=== PATIENT | male | born 1960 | race Caucasian/White ===

== ENCOUNTER 2020-03-08 10:58 | Outpatient (CLI) | payer OTHER, SELFPAY ==
--- NOTE | ~2020-03-08 | XR_ITS ---
EXAMINATION: XR shoulder LT min 2V, XR humerus LT DATE: 03/08/2020 11:42 INDICATION: Left arm and shoulder pain post fall TECHNIQUE: 1. AP internally and externally rotated, AP oblique externally rotated and axillary views of the left shoulder were obtained. 2. AP and lateral views of the left humerus were obtained on overlapping proximal and distal images. COMPARISON: None FINDINGS: Normal alignment. No fracture. Mild polyarticular osteoarthritis at the left glenohumeral, chromic c lavicular and elbow joints. Soft tissues are unremarkable. Visualized portions of the left lung are c lear. IMPRESSION: Mild polyarticular osteoarthritis at the left elbow and shoulder. No acute osseous abnormality. Reviewed, dictated and finalized at location A. IMPRESSION: Mild polyarticular osteoarthritis at the left elbow and shoulder. No acute osse ous abnormality.
== END 2020-03-08 10:59 | disposition home or self-care (01) ==
PROVIDERS: PCP Family Medicine; Visit Provider Nurse Practitioner
DX: M19.012 Primary osteoarthritis, left shoulder (principal); M19.022 Primary osteoarthritis, left elbow
CPT/HCPCS: 73030; 73060

== ENCOUNTER 2020-09-28 09:16 | Outpatient (CLI) | payer MEDICARE, MEDICAID, SELFPAY ==
--- NOTE | 2020-09-28 | EST_ITS ---
Patient Info Name: Hever Washington Age: 60 years : 1960 Gender: Male Ht: 76 in Wt: 370 lbs BSA: 3.07 m2 Exam Date: 09/28/2020 9:47 AM Exam Location: [facility] Stress Patient Status: Outpatient Admit Date: 09/28/2020 Staff Ordering Physician: Paul, Sirena Dorsey NP Attending Provider: Paul, Sirena Dorsey NP Exercise Technologist: Adriana Lei RDCS Exercise Physician: Abdelrahman Johnston MD Exam Type: CA stress test treadmill Study Info Indications R07.9 - Chest pain, unspecified A treadmill exercise stress test was performed. Summary 1. Non-diagnostic ECG interpretation due to submaximal heart rate response to exercise achieving 84% APMHR. 2. No electrocardiographic evidence of myocardial ischemia at workload achieved, 4.7 METS at peak exercise. 3. Poor exercise tolerance for age. 4. Normal BP and submaximal HR response to exercise. 5. Occasional PVCs noted during recovery. 6. No stress induced chest pain. 7. Consider alternative modality such as Lexiscan nuclear perfusion study if clinically indicated to improve diagnostic sensitivity and specificity. Recommendations * Consider alternative modality such as Lexiscan nuclear perfusion study if clinically indicated to improve diagnostic sensitivity and specificity. Protocol: Eric Stress ECG Details Stage: REST Duration (min): 7 min : 29 sec Speed (mph): 0.0 Grade (%): 0 HR (bpm): 58 SBP (mmHg): 125 DBP (mmHg): 79 METS: --- Stage: REST Duration (min): 9 min : 26 sec Speed (mph): 0.0 Grade (%): 0 HR (bpm): 86 SBP (mmHg): 125 DBP (mmHg): 79 METS: --- Stage: STAGE 1 Duration (min): 1 min : 0 sec Speed (mph): 1.7 Grade (%): 10 HR (bpm): 108 SBP (mmHg): 125 DBP (mmHg): 79 METS: --- Stage: STAGE 1 Duration (min): 2 min : 0 sec Speed (mph): 1.7 Grade (%): 10 HR (bpm): 130 SBP (mmHg): 125 DBP (mmHg): 79 METS: --- Stage: STAGE 1 Duration (min): 2 min : 51 sec Speed (mph): 1.7 Grade (%): 10 HR (bpm): 135 SBP (mmHg): 169 DBP (mmHg): 106 METS: --- Stage: RECOVERY Duration (min): 0 min : 8 sec Speed (mph): 1.5 Grade (%): 0 HR (bpm): 136 SBP (mmHg): 169 DBP (mmHg): 106 METS: --- Stage: RECOVERY Duration (min): 1 min : 8 sec Speed (mph): 0.0 Grade (%): 0 HR (bpm): 85 SBP (mmHg): 192 DBP (mmHg): 83 METS: --- Stage: RECOVERY Duration (min): 2 min : 8 sec Speed (mph): 0.0 Grade (%): 0 HR (bpm): 59 SBP (mmHg): 192 DBP (mmHg): 83 METS: --- Stage: RECOVERY Duration (min): 3 min : 8 sec Speed (mph): 0.0 Grade (%): 0 HR (bpm): 67 SBP (mmHg): 192 DBP (mmHg): 83 METS: --- Stage: RECOVERY Duration (min): 3 min : 24 sec Speed (mph): 0.0 Grade (%): 0 HR (bpm): 69 SBP (mmHg): 164 DBP (mmHg): 85 METS: --- Rest HR: 86 bpm Peak HR: 136 bpm Rest Sys BP: 125 mmHg Peak Sys BP: 192 mmHg Max Pred HR: 161 bpm % Max Pred HR: 84 %
== END 2020-09-28 09:17 | disposition home or self-care (01) ==
PROVIDERS: PCP Family Medicine; Visit Provider Nurse Practitioner
DX: R07.9 Chest pain, unspecified (principal)
CPT/HCPCS: 93017

== ENCOUNTER 2020-10-20 08:05 | Outpatient (CLI) | payer MEDICARE, MEDICAID, SELFPAY ==
--- NOTE | 2020-10-20 | EST_ITS ---
Patient Info Name: Hever Washington Age: 60 years : 1960 Gender: Male Ht: 76 in Wt: 372 lbs BSA: 3.08 m2 Exam Date: 10/20/2020 9:28 AM Exam Location: [facility] Stress Patient Status: Outpatient Admit Date: 10/20/2020 Staff Ordering Physician: Paul, Sirena Dorsey NP Attending Provider: Paul, Sirena Dorsey NP Exercise Technologist: Anuel Ferro RDCS, RT Exercise Physician: Abdelrahman Johnston MD Exam Type: CA stress david w NM Study Info A regadenoson stress test was performed. Summary 1. Normal EKG response to Lexiscan without changes meeting strict criteria for reversible myocardial ischemia. 2. No arrhythmias were observed during the examination. 3. Please correlate with nuclear medicine images, reported separately. 4. No chest discomfort with stress test. Protocol: Lexiscan Stress ECG Details Stage: REST Duration (min): 2 min : 39 sec HR (bpm): 67 SBP (mmHg): 131 DBP (mmHg): 78 Stage: REST Duration (min): 11 min : 44 sec HR (bpm): 67 SBP (mmHg): 131 DBP (mmHg): 78 Stage: STAGE 1 Duration (min): 1 min : 0 sec HR (bpm): 88 SBP (mmHg): 142 DBP (mmHg): 76 Stage: RECOVERY Duration (min): 1 min : 0 sec HR (bpm): 90 SBP (mmHg): 142 DBP (mmHg): 76 Stage: RECOVERY Duration (min): 2 min : 0 sec HR (bpm): 91 SBP (mmHg): 142 DBP (mmHg): 76 Stage: RECOVERY Duration (min): 3 min : 0 sec HR (bpm): 83 SBP (mmHg): 150 DBP (mmHg): 82 Stage: RECOVERY Duration (min): 4 min : 0 sec HR (bpm): 83 SBP (mmHg): 150 DBP (mmHg): 82 Stage: RECOVERY Duration (min): 5 min : 0 sec HR (bpm): 77 SBP (mmHg): 148 DBP (mmHg): 87 Stage: RECOVERY Duration (min): 5 min : 28 sec HR (bpm): 78 SBP (mmHg): 148 DBP (mmHg): 87 Rest HR: 67 bpm Peak HR: 98 bpm Rest Sys BP: 131 mmHg Peak Sys BP: 150 mmHg Max Pred HR: 161 bpm % Max Pred HR: 61 % Target HR: 137 bpm Max RPP: 14,700 bpm*mmHg BP Response: Normal blood pressure response Termination Reason: Completed protocol Cardiac Symptoms: None Total Time: 1 min : 0 sec Rest Hernandes BP: 78 mmHg Peak Hernandes BP: 82 mmHg Total Dose: 0.4 mg Resting ECG Normal sinus rhythm. First-degree AV block, low-voltage QRS. Stress ECG Normal EKG response to Lexiscan without changes meeting strict criteria for reversible myocardial ischemia. Arrhythmias No arrhythmias were observed during the examination. Report Signatures
--- NOTE | ~2020-10-20 | NM_ITS ---
EXAMINATION: NM david stress w perfusion DATE: 10/20/2020 11:45 INDICATION: Chest pain. TECHNIQUE: Rest images were obtained following intravenous administration of 9.6 mCi Tc99m tetrofosmi n (Myoview). The patient was infused intravenously with Lexiscan (regadenoson). Then, 28.6 mCi Tc99m tetrofosmin (Myoview) was administered intravenously, and stress images were obtained. Data was recon structed into short axis and horizontal and vertical long axis SPECT images. Gated SPECT images were also obtained. COMPARISON: None. FINDINGS: There is a moderate-sized, mild, partially reversible perfusion defect involving the left v entricular apex, apical lateral segment, and apical to mid inferior segments, consistent with mixed i nfarct and ischemia. There is no segmental motion abnormality. Left ventricular ejection fraction m easures 59%. IMPRESSION: 1. 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 2. Normal left ventricular ejection fraction measuring 59%. Reviewed, dictated and finalized at location A. PEELING MACHINE OPERATOR HELPER IMPRESSION: 1. Moderate-sized area of mild mixed infarct and ischemia involving left ventri cular apex, apical lateral segment, and apical to mid inferior segments. 2. Normal left ventricular ejection fraction measuring 59%.
== END 2020-10-20 08:06 | disposition home or self-care (01) ==
LOC: ANHCARD 08:09
PROVIDERS: PCP Family Medicine; Visit Provider Nurse Practitioner
DX: R07.9 Chest pain, unspecified (principal)
CPT/HCPCS: 78452; 93017; A9502; J2785

== ENCOUNTER 2020-12-29 13:42 | Emergency (ER) | payer MEDICARE, SELFPAY ==
--- NOTE | ~2020-12-29 | XR_ITS ---
EXAMINATION: XR wrist RT min 3V EXAM DATE: 12/29/2020 14:45 INDICATION: Initial encounter following injury, with pain of the right wrist. TECHNIQUE: Right wrist frontal, frontal with ulnar deviation, oblique and lateral projections obtain ed and reviewed. Comparison is made to prior examination from 11/18/2015. FINDINGS: Right wrist scapholunate joint space is maintained. There are no acute fractures or disloca tions identified. There is no subcutaneous gas. The soft tissue is unremarkable. There are no rad iopaque foreign bodies. IMPRESSION: 1. XR wrist RT min 3V exam without acute osseous findings. Reviewed, dictated and finalized at location A.
--- NOTE | ~2020-12-29 | XR_ITS ---
EXAMINATION: XR shoulder RT min 2V EXAM DATE: 12/29/2020 14:45 INDICATION: Initial encounter following injury, with pain of the right shoulder. TECHNIQUE: The following right shoulder projections obtained: frontal projection with internal rotati on, frontal projection with external rotation, Grashey, and scapular Y view (4+ views). Comparison is made to prior examination from 06/21/2015. FINDINGS: No evidence of right shoulder rotator cuff calcific tendinosis. There is mild glenohumer al, mild to moderate acromioclavicular joint primary osteoarthritis. There are no acute fractures or dislocations identified. There is no subcutaneous gas. The soft tissue is unremarkable. There are no radiopaque foreign bodies. IMPRESSION: 1. XR shoulder RT min 2V exam without acute osseous findings. Reviewed, dictated and finalized at location A.
[2020-12-29 14:04] VITALS: BP 146/89; PULSE 88; RESP 16; TEMP 36.6; O2SAT 98
[2020-12-29] MEDS: TETANUS,DIPHTHERIA,AC PERTUSSIS ADULT (0.5 ML) BOOSTRIX IM (14:06)
--- NOTE | 2020-12-29 15:05 | ED.UPPEXIN ---
HPI - Extremity Injury (Upper) General Chief Complaint: Extremity Injury, Lower Stated Complaint: FALL/L LEG INJURY Source: patient Limitations: no limitations History of Present Illness HPI narrative: The obese patient, on several meds and disability, presents with extremity pains. The patient states he slipped and fell prior to arrival on his deck, landing up on his upper right side in the yard. He complains of mild pain left scott, right wrist and right shoulder; is mild worse with motion, better with rest or elevation. No significant deformity, bleeding, edema Related Data Home Medications Medication Instructions Recorded Confirmed aspirin 81 mg tablet,delayed 81 mg PO DAILY 11/03/20 12/07/20 release cyclobenzaprine 10 mg tablet 10 mg PO TID 11/03/20 12/07/20 docusate sodium 100 mg capsule 100 mg PO DAILY 11/03/20 12/07/20 gabapentin 600 mg tablet 600 mg PO TID 11/03/20 12/07/20 hydrocodone 5 mg-acetaminophen 325 1 tablet PO Q6H PRN 11/03/20 12/07/20 mg tablet lisinopril 20 mg tablet 20 mg PO DAILY 11/03/20 12/07/20 melatonin 10 mg capsule mg PO .pm PRN cap 11/03/20 12/07/20 meloxicam 7.5 mg tablet 7.5 mg PO DAILY 11/03/20 12/07/20 multivitamin 1 tablet PO DAILY 11/03/20 12/07/20 sertraline 50 mg tablet 50 mg PO DAILY 11/03/20 12/07/20 sildenafil 25 mg tablet 25 mg PO DAILY PRN 11/03/20 12/07/20 venlafaxine 75 mg capsule,extended 75 mg PO DAILY 11/03/20 12/07/20 release 24 hr ascorbate calcium (vitamin C) 500 500 mg PO DAILY 11/09/20 12/07/20 mg tablet cholecalciferol (vitamin D3) 10 10 mcg PO DAILY 11/09/20 12/07/20 mcg (400 unit) capsule cyanocobalamin (vitamin B-12) 50 50 mcg PO DAILY 11/09/20 12/07/20 mcg tablet ropinirole 1 mg tablet 1 mg PO DAILY tablet 11/09/20 12/07/20 vitamin E 200 unit capsule 200 unit PO DAILY 02/23/21 03/23/21 Allergies Allergy/AdvReac Type Severity Reaction Status Date / Time No Known Allergies Allergy Verified 12/07/20 13:09 Review of Systems Review of Systems: Narrative: General/Constitutional: No weight loss,fever Eyes: N0: Redness,discharge Ears/Nose/Throat: No: Epistaxis,ear discharge Respiratory: Denies: Hemoptysis Gastrointestinal: No Vomiting, Bleeding-rectal Skin: No Lumps, eruption Neurologic: No Focal Weakness,Sz Hematologic: Denies: Petechiae/Purpura Psychiatric: No: Suicida ideationl All Other Systems: Reviewed and Negative [facility] Past Medical History Medical History (Updated 12/29/20 @ 15:10 by Mustapha Cleary MD) Anxiety Hypertension Insomnia Obesity ED (obstructive sleep apnea) Osteoarthritis Radiculopathy of lumbosacral region Spinal stenosis Spinal stenosis of lumbosacral region Testicular hypofunction Umbilical hernia with gangrene Social History Social History Smoking status: Former smoker Comments At time of signature, agree with nursing past medical, surgical, social and family history. There is no relevant family history pertinent to the presenting complaint Exam Narrative: Exam Narrative: General Appearance: Aged appearing, Well nourished/obese EYE: PERRLA, EOMI, Conjunctiva clear Ears: External ear normal, Auditory canal normal Nose: Normal nose, Nares clear Mouth/Throat: Normal appearing, Normal lips Neck: Supple, SROm/ FAROM , noontender Respiratory: Airway patent, No respiratory distress MS-RUE: Normal strength (mostly intact, limited flexion/extension, IR/ER by pain), Tenderness (deltoid and distal radial styloid, with mild decreased ROM), no swelling , Skin: Small puncture wound left scott; otherwise warm, Dry, Neurological: A&O x3, Speech clear, CN II-XII intact Psychiatric: Normal mood, Normal affect Course Course Emergency Course: Films visualized, interpreted by radiologist, agree, normal see report Vital Signs Vital signs: Vital Signs Temperature 97.8 F 12/29/20 14:04 Pulse Rate 88 12/29/20 14:04 Respiratory Rate 16 12/29/20 14:04 Blood Pressure 146/89 H 12/29/20 14:04
== END 2020-12-29 15:18 | disposition home or self-care (01) ==
PROVIDERS: Emergency Provider Emergency Medicine; PCP Family Medicine
DX: S69.81XA Other specified injuries of right wrist, hand and finger(s), initial encounter (principal); S40.011A Contusion of right shoulder, initial encounter; W01.0XXA Fall on same level from slipping, tripping and stumbling without subsequent striking against object, initial encounter; Z23 Encounter for immunization; I10 Essential (primary) hypertension; G47.33 Obstructive sleep apnea (adult) (pediatric); M19.90 Unspecified osteoarthritis, unspecified site; M48.07 Spinal stenosis, lumbosacral region; F41.9 Anxiety disorder, unspecified; Z87.891 Personal history of nicotine dependence
CPT/HCPCS: 73030; 73110; 90471; 90715; 99214; G0463

== ENCOUNTER 2021-01-28 12:47 | Outpatient (CLI) | payer MEDICARE, SELFPAY ==
[2021-01-28 13:44] LABS: Potassium 4.8 mmol/L (3.4-5.0)
[2021-01-28 13:46] LABS: Alanine Aminotransferase 16 U/L (4-50); Albumin Level 4.2 g/dL (3.5-5.1); Alkaline Phosphatase 62 U/L (38-126); Anion Gap 3 mmol/L (8-16); Aspartate Amino Transferase 28 U/L (17-59); Bilirubin,Total 0.5 mg/dL (0.2-1.3); Blood Urea Nitrogen 19 mg/dL (9-20); Calcium 9.6 mg/dL (8.4-10.2); Carbon Dioxide 33 mmol/L (22-30); Chloride 102 mmol/L (98-107); Cholesterol 155 mg/dL (0-200); Estimated Glomerular Filt Rate > 60; Glucose 94 mg/dL (75-110); HDL Direct 31 mg/dL; Sodium 138 mmol/L (137-145); Triglycerides 88 mg/dL (<150)
[2021-01-28 13:56] LABS: LDL Cholesterol Direct 103 mg/dL
== END 2021-01-28 12:48 | disposition home or self-care (01) ==
PROVIDERS: PCP Family Medicine; Visit Provider Internal Medicine Cardiovascular Disease
DX: I25.10 Atherosclerotic heart disease of native coronary artery without angina pectoris (principal)
CPT/HCPCS: 36415; 80053; 80061

== ENCOUNTER 2021-08-01 11:14 | Outpatient (CLI) | payer MEDICARE, SELFPAY ==
[2021-08-01 11:51] LABS: Basophils Percent Auto 0.1 % (0.2-1.2); Eosinophils Absolute Auto 0.2 K/mm3 (0-0.3); Hematocrit 43.8 % (42.0-52.0); Hemoglobin 14.8 g/dL (14.0-18.0); Immature Granulocyte Absolute 0.02 K/mm3 (0.00-0.031); Immature Granulocyte Percent A 0.3 % (0-0.5); Lymphocytes Absolute Auto 1.83 K/mm3 (0.9-3.2); Lymphocytes Percent Auto 27.2 % (18.3-44.2); Mean Corpuscular HGB Conc 33.8 g/dl (32-36); Mean Corpuscular Hemoglobin 30.3 pg (26-34); Mean Corpuscular Volume 89.6 fl (80-100); Mean Platelet Volume 9.1 fl (7.4-10.4); Monocytes Absolute Auto 0.4 K/mm3 (0.1-0.6); Monocytes Percent Auto 5.9 % (2.6-8.5); Neutrophils Absolute Auto 4.3 K/mm3 (1.3-6.7); Neutrophils Percent Auto 63.5 % (45.5-73.1); Platelet Count Result 250 k/mm3 (150-375); Red Blood Count 4.89 M/mm3 (4.6-6.20); Red Cell Distribution Width 13.1 % (11.5-14.5); White Blood Count 6.7 K/mm3 (4.5-10.0)
[2021-08-01 11:54] LABS: Alanine Aminotransferase 22 U/L (4-50); Albumin Level 4.2 g/dL (3.5-5.1); Alkaline Phosphatase 64 U/L (38-126); Anion Gap 8 mmol/L (8-16); Aspartate Amino Transferase 23 U/L (17-59); Bilirubin,Total 0.3 mg/dL (0.2-1.3); Blood Urea Nitrogen 24 mg/dL (9-20); Calcium 9.4 mg/dL (8.4-10.2); Carbon Dioxide 24 mmol/L (22-30); Chloride 106 mmol/L (98-107); Cholesterol 172 mg/dL (0-200); Estimated Glomerular Filt Rate > 60; Glucose 92 mg/dL (65-110); HDL Direct 42 mg/dL; Potassium 4.6 mmol/L (3.4-5.0); Sodium 138 mmol/L (137-145); Triglycerides 91 mg/dL (<150)
[2021-08-01 12:05] LABS: LDL Cholesterol Direct 110 mg/dL
== END 2021-08-01 11:15 | disposition home or self-care (01) ==
LOC: ANHLAB 11:18
PROVIDERS: PCP Family Medicine; Visit Provider Nurse Practitioner Family
DX: I10 Essential (primary) hypertension (principal); Z13.220 Encounter for screening for lipoid disorders
CPT/HCPCS: 36415; 80053; 80061; 85025

== ENCOUNTER 2021-08-10 08:26 | Outpatient (CLI) | payer MEDICARE, SELFPAY ==
--- NOTE | ~2021-08-10 | CT_ITS ---
EXAMINATION: CT abdomen pelvis w con DATE: 08/10/2021 09:06 INDICATION: Abdominal pain. Umbilical hernia. TECHNIQUE: Computed tomography (CT) of the abdomen and pelvis was performed with 100 mL Omnipaque 350 intravenous contrast. Automated exposure control and iterative reconstruction technique were employe d. The dose-length product was 1715.88 mGy-cm. COMPARISON: None. FINDINGS: The visualized portions of the lung bases demonstrate mild atelectasis. No pleural effusion . The heart size is normal. No pericardial effusion. There is a 21 mm cyst in the liver. The spleen i s normal. There are gallstones in the gallbladder, which is normal in size. The pancreas and adrenal glands are normal. There are cysts in the kidneys measuring up to 2.4 cm on the right. There are no d ilated loops of bowel. The appendix is normal. There is an umbilical hernia containing fat. There are no pathologically enlarged lymph nodes. There is no free intraperitoneal fluid. There is intermuscul ar lipoma lateral to proximal right femur. There is moderate lumbar spondylosis and mild thoracic spo ndylosis. IMPRESSION: 1. Umbilical hernia containing fat. 2. Cholelithiasis. No evidence of acute cholecystitis. Reviewed, dictated and finalized at location B. L DRILL OPERATOR
== END 2021-08-10 08:27 | disposition home or self-care (01) ==
LOC: ANHIMG 08:32
PROVIDERS: PCP Family Medicine; Visit Provider Nurse Practitioner Family
DX: R10.9 Unspecified abdominal pain (principal); K42.9 Umbilical hernia without obstruction or gangrene; K80.20 Calculus of gallbladder without cholecystitis without obstruction
CPT/HCPCS: 74177; Q9967

== ENCOUNTER 2021-10-15 17:27 | Emergency (ER) | payer MEDICARE, SELFPAY ==
--- NOTE | ~2021-10-15 | XR_ITS ---
XR finger 3rd LT min 2V DATE: 10/15/2021 18:11 INDICATION: Pain and swelling of distal phalanx; no injury TECHNIQUE: 4 views COMPARISON: None FINDINGS: There is osteoarthritis at the first carpometacarpal joint. No fracture or dislocation, periosteal reaction or bone destruction of the third digit. There is nons pecific soft tissue swelling of the third digit. No radiopaque soft tissue foreign body or subcutaneo us emphysema. IMPRESSION: Nonspecific soft tissue swelling of the third digit; no or radiopaque foreign body, subcu taneous emphysema, fracture, dislocation or bone destruction Reviewed, dictated and finalized at location A. ORK SYSTEMS ANALYST IMPRESSION: Nonspecific soft tissue swelling of the third digit; no or radiopaq ue foreign body, subcutaneous emphysema, fracture, dislocation or bone destruct ion
[2021-10-15 17:32] VITALS: BP 150/82; PULSE 105; RESP 20; TEMP 36.7; O2SAT 97
--- NOTE | 2021-10-15 18:12 | ED.GENADULT ---
HPI - General Adult General Chief complaint: Wound/Laceration Stated complaint: lt middle finger inf Source: patient Mode of arrival: ambulatory Limitations: no limitations History of Present Illness HPI narrative: Patient presents for evaluation of pain and swelling to the third digit of the right hand since yesterday. He cannot identify any precipitating cause or injury. States the pain is constant, 8 out of 10 in severity, without descriptive quality. Pain is worse with palpation. Movement also worsens his pain. No paresthesias. He is right hand dominant. Date of last tetanus unknown. He is not diabetic. He takes hydrocodone for chronic back and knee pain. No additional complaints or concerns Related Data Home Medications Medication Instructions Recorded Confirmed aspirin 81 mg tablet,delayed 81 mg PO DAILY 11/03/20 05/31/21 release cyclobenzaprine 10 mg tablet 10 mg PO TID 11/03/20 05/31/21 docusate sodium 100 mg capsule 100 mg PO DAILY 11/03/20 05/31/21 gabapentin 600 mg tablet 600 mg PO TID 11/03/20 05/31/21 hydrocodone 5 mg-acetaminophen 325 1 tablet PO Q6H PRN 11/03/20 05/31/21 mg tablet lisinopril 20 mg tablet 20 mg PO DAILY 11/03/20 05/31/21 melatonin 10 mg capsule mg PO .pm PRN cap 11/03/20 05/31/21 meloxicam 7.5 mg tablet 7.5 mg PO DAILY 11/03/20 05/31/21 multivitamin 1 tablet PO DAILY 11/03/20 05/31/21 sertraline 50 mg tablet 50 mg PO DAILY 11/03/20 05/31/21 sildenafil 25 mg tablet 25 mg PO DAILY PRN 11/03/20 05/31/21 venlafaxine 75 mg capsule,extended 75 mg PO DAILY 11/03/20 05/31/21 release 24 hr ascorbate calcium (vitamin C) 500 500 mg PO DAILY 11/09/20 05/31/21 mg tablet cholecalciferol (vitamin D3) 10 10 mcg PO DAILY 11/09/20 05/31/21 mcg (400 unit) capsule cyanocobalamin (vitamin B-12) 50 50 mcg PO DAILY 11/09/20 05/31/21 mcg tablet ropinirole 1 mg tablet 1 mg PO DAILY tablet 11/09/20 05/31/21 vitamin E 200 unit capsule 200 unit PO DAILY 11/09/20 05/31/21 magnesium 100 mg PO DAILY 10/15/21 10/15/21 Allergies Allergy/AdvReac Type Severity Reaction Status Date / Time No Known Allergies Allergy Verified 10/15/21 17:36 Review of Systems Review of Systems: CONSTITUTIONAL: Denies fever, chills, or sweats. EYES: Denies visual changes, redness, or discharge. ENT: Denies rhinorrhea, congestion, sore throat, or otalgia. CARDIOVASCULAR: Denies chest pain, palpitations, or edema. RESPIRATORY: Denies cough or dyspnea. GASTROINTESTINAL: Denies abdominal pain, nausea, vomiting, or diarrhea. GENITOURINARY: Denies dysuria or hematuria. SKIN: Denies rash or itching. MUSCULOSKELETAL: Reports pain and swelling to third digit of left hand NEUROLOGIC: Denies headache, numbness, dizziness, or weakness. PSYCHIATRIC: Denies anxiety or depression. [facility] Past Medical History Medical History (Updated 10/15/21 @ 18:34 by CANDICE OteroP, ) Anxiety Hypertension Insomnia Obesity ED (obstructive sleep apnea) Osteoarthritis Radiculopathy of lumbosacral region Spinal stenosis Spinal stenosis of lumbosacral region Testicular hypofunction Umbilical hernia with gangrene Surgical History Surgical History No pertinent past surgical history Family History Family History Mother Heart disease Father Heart disease Social History Social History Smoking status: Former smoker Alcohol intake: current Alcohol use details: rare Substance use: current Substance use type: marijuana Living arrangements: with family Gender identity (if verbalized by the patient): Male Sexual Orientation (if Verbalized by the Patient): Straight or Heterosexual Spiritual care concerns: No Exam Narrative: GENERAL: Well-appearing, well-nourished, and in no acute distress. HEAD: Normocephalic, atraumatic. EYES:
[2021-10-15] MEDS: TETANUS,DIPHTHERIA,AC PERTUSSIS ADULT (0.5 ML) BOOSTRIX IM (18:37)
== END 2021-10-15 18:50 | disposition home or self-care (01) ==
PROVIDERS: Emergency Provider Nurse Practitioner; PCP Family Medicine
DX: L03.012 Cellulitis of left finger (principal); Z23 Encounter for immunization; Z87.891 Personal history of nicotine dependence; I10 Essential (primary) hypertension; G47.33 Obstructive sleep apnea (adult) (pediatric); E66.9 Obesity, unspecified; Z68.42 Body mass index [BMI] 45.0-49.9, adult; M48.07 Spinal stenosis, lumbosacral region; M19.90 Unspecified osteoarthritis, unspecified site; F41.9 Anxiety disorder, unspecified; F12.90 Cannabis use, unspecified, uncomplicated; Z79.82 Long term (current) use of aspirin
CPT/HCPCS: 73140; 90471; 90715; 99213; G0463

== ENCOUNTER 2021-12-30 12:51 | Emergency (ER) | payer MEDICARE, SELFPAY ==
[2021-12-30 13:02] VITALS: BP 109/92; PULSE 72; RESP 16; TEMP 36.6; O2SAT 98
--- NOTE | 2021-12-30 13:05 | ED.UPPEXIN ---
HPI - Extremity Injury (Upper) General Chief Complaint: Extremity Injury, Upper Stated Complaint: R WRIST SWELLING Time Seen by Provider: 12/30/21 13:05 Source: patient Mode of arrival: ambulatory Limitations: no limitations History of Present Illness HPI narrative: 61-year-old male presents with complaint of pain to right wrist. Patient reports that he has had this pain for approximately 1 year. Had an injury and was told the x-ray was normal. States that he has seen his primary care physician for this pain several times and has been told that he has arthritis. Patient takes hydrocodone for his pain and reports no relief. Saw his primary care physician last week for same pain. The pain is not any worse today. States I need a plan for when I am going to do about this pain . Denies numbness tingling. 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 States that right wrist feels tight . All systems reviewed and negative except as noted above. Related Data Home Medications Medication Instructions Recorded Confirmed aspirin 81 mg tablet,delayed 81 mg PO DAILY 11/03/20 11/29/21 release cyclobenzaprine 10 mg tablet 10 mg PO TID 11/03/20 11/29/21 docusate sodium 100 mg capsule 100 mg PO DAILY 11/03/20 11/29/21 gabapentin 600 mg tablet 600 mg PO TID 11/03/20 11/29/21 hydrocodone 5 mg-acetaminophen 325 1 tablet PO Q6H PRN 11/03/20 11/29/21 mg tablet lisinopril 20 mg tablet 20 mg PO DAILY 11/03/20 11/29/21 melatonin 10 mg capsule mg PO .pm PRN cap 11/03/20 11/29/21 meloxicam 7.5 mg tablet 7.5 mg PO DAILY 11/03/20 11/29/21 multivitamin 1 tablet PO DAILY 11/03/20 11/29/21 sertraline 50 mg tablet 50 mg PO DAILY 11/03/20 11/29/21 sildenafil 25 mg tablet 25 mg PO DAILY PRN 11/03/20 11/29/21 venlafaxine 75 mg capsule,extended 75 mg PO DAILY 11/03/20 11/29/21 release 24 hr ascorbate calcium (vitamin C) 500 500 mg PO DAILY 11/09/20 11/29/21 mg tablet cholecalciferol (vitamin D3) 10 10 mcg PO DAILY 11/09/20 11/29/21 mcg (400 unit) capsule cyanocobalamin (vitamin B-12) 50 50 mcg PO DAILY 11/09/20 11/29/21 mcg tablet ropinirole 1 mg tablet 1 mg PO DAILY tablet 11/09/20 11/29/21 vitamin E 200 unit capsule 200 unit PO DAILY 11/09/20 11/29/21 magnesium 100 mg PO DAILY 10/15/21 11/29/21 Allergies Allergy/AdvReac Type Severity Reaction Status Date / Time No Known Allergies Allergy Verified 11/29/21 13:01 Review of Systems Review of Systems: CONSTITUTIONAL: Denies fever, chills, or sweats. EYES: Denies visual changes, redness, or discharge. ENT: Denies rhinorrhea, congestion, sore throat, or otalgia. CARDIOVASCULAR: Denies chest pain, palpitations, or edema. RESPIRATORY: Denies cough or dyspnea. GASTROINTESTINAL: Denies abdominal pain, nausea, vomiting, or diarrhea. GENITOURINARY: Denies dysuria or hematuria. SKIN: Denies rash or itching. MUSCULOSKELETAL: Denies back pain or myalgia. Reports right wrist pain. NEUROLOGIC: Denies headache, numbness, or weakness. PSYCHIATRIC: Denies anxiety or depression. All other systems reviewed are negative, except as documented in HPI. [facility] Past Medical History Medical History Anxiety Hypertension Insomnia Obesity ED (obstructive sleep apnea) Osteoarthritis Radiculopathy of lumbosacral region Spinal stenosis Spinal stenosis of lumbosacral region Testicular hypofunction Umbilical hernia with gangrene Surgical History Surgical History No pertinent past surgical history Family History Family History Mother Heart disease Father Heart disease Social History Social History Smoking status: Former smoker Alcohol intake: current Alcohol use details: rare Substance use: current Substance use type: john
== END 2021-12-30 13:22 | disposition home or self-care (01) ==
PROVIDERS: Emergency Provider Nurse Practitioner Family; PCP Family Medicine
DX: G89.29 Other chronic pain (principal); M25.531 Pain in right wrist; I10 Essential (primary) hypertension; G47.33 Obstructive sleep apnea (adult) (pediatric); M19.90 Unspecified osteoarthritis, unspecified site; M48.07 Spinal stenosis, lumbosacral region; Z87.891 Personal history of nicotine dependence; F41.9 Anxiety disorder, unspecified; Z79.82 Long term (current) use of aspirin
CPT/HCPCS: 99213; G0463

== ENCOUNTER 2022-12-28 12:14 | Outpatient (CLI) | payer MEDICARE, SELFPAY ==
--- NOTE | ~2022-12-28 | XR_ITS ---
XR knee LT min 4V 12/28/2022 12:44 Indication: Left knee pain, chronic Procedure: 4 views left knee Comparison: 05/20/2018 Findings: Interval progression of moderate tricompartment osteoarthritis, most advanced in the medial compartment. No fracture or traumatic malalignment. No joint effusion. No foreign bodies. Impression: 1: Interval progression of moderate tricompartment osteoarthritis. Reviewed, dictated and finalized at location L. Impression: 1: Interval progression of moderate tricompartment osteoarthritis.
== END 2022-12-28 12:15 | disposition home or self-care (01) ==
PROVIDERS: PCP Family Medicine; Visit Provider Nurse Practitioner Adult Health
DX: M17.12 Unilateral primary osteoarthritis, left knee (principal)
CPT/HCPCS: 73564

== ENCOUNTER 2023-02-17 12:49 | Emergency (ER) | payer MEDICARE, SELFPAY ==
[2023-02-17 12:57] VITALS: BP 144/83; PULSE 69; RESP 16; TEMP 37.1; O2SAT 98
--- NOTE | 2023-02-17 13:11 | ED.URI ---
HPI - URI/Sore Throat General Chief Complaint: Upper Respiratory Infection Stated Complaint: HEAD PRESSURE/CONGESITON Time Seen by Provider: 02/17/23 13:02 Source: patient and RN notes reviewed Mode of arrival: ambulatory Limitations: no limitations History of Present Illness HPI Narrative: Patient presents today complaining of frontal headache and rhinorrhea since yesterday afternoon. Denies fever, cough, congestion, sore throat. Denies sick contacts. He has tried a dose of Claritin without relief. He also took a Ranger yesterday for his headache without relief. Related Data Home Medications Medication Instructions Recorded Confirmed aspirin 81 mg tablet,delayed 81 mg PO DAILY 11/03/20 02/17/23 release gabapentin 600 mg tablet 800 mg PO TID 11/03/20 02/17/23 melatonin 10 mg capsule 10 mg PO .pm PRN Sleep 11/03/20 02/17/23 meloxicam 7.5 mg tablet 7.5 mg PO BID 11/03/20 02/17/23 multivitamin 1 tablet PO DAILY 11/03/20 02/17/23 ascorbate calcium (vitamin C) 500 500 mg PO DAILY 11/09/20 02/17/23 mg tablet cholecalciferol (vitamin D3) 10 25 mcg PO DAILY 11/09/20 02/17/23 mcg (400 unit) capsule cyanocobalamin (vitamin B-12) 50 50 mcg PO DAILY 11/09/20 02/17/23 mcg tablet ropinirole 1 mg tablet 1 mg PO DAILY 11/09/20 02/17/23 vitamin E 200 unit capsule 200 unit PO DAILY 11/09/20 02/17/23 magnesium 100 mg capsule 100 mg PO DAILY 10/15/21 02/17/23 docusate sodium 100 mg capsule 100 mg PO DAILY PRN Constipation 12/14/22 02/17/23 losartan 50 mg tablet 50 mg PO DAILY 12/14/22 02/17/23 pantoprazole 20 mg tablet,delayed 20 mg PO QAM 12/14/22 02/17/23 release citicoline 500 mg capsule 500 mg PO DAILY 02/17/23 02/17/23 ([facility]) coenzyme Q10 200 mg capsule (Co 200 mg PO DAILY 02/17/23 02/17/23 Q-10) fluoxetine 40 mg capsule 40 mg PO DAILY 02/17/23 02/17/23 semaglutide 3 mg tablet (Rybelsus) 3 mg PO DAILY 02/17/23 02/17/23 Allergies Allergy/AdvReac Type Severity Reaction Status Date / Time No Known Allergies Allergy Verified 02/17/23 12:55 Review of Systems Review of Systems: CONSTITUTIONAL: Denies body aches, fever, chills, or sweats. EYES: Denies visual changes, redness, or discharge. ENT: Denies congestion, sore throat, or otalgia.+ rhinorrhea CARDIOVASCULAR: Denies chest pain, palpitations, or edema. RESPIRATORY: Denies cough or dyspnea. GASTROINTESTINAL: Denies abdominal pain, nausea, vomiting, or diarrhea. GENITOURINARY: Denies dysuria or hematuria. SKIN: Denies rash, itching, or wounds. MUSCULOSKELETAL: Denies back pain, joint pain, or myalgia. NEUROLOGIC: Denies numbness, tingling, or weakness.+ frontal headache PSYCH: Denies depression or anxiety. [facility] Past Medical History Medical History Anxiety Hypertension Insomnia Obesity ED (obstructive sleep apnea) Osteoarthritis Radiculopathy of lumbosacral region Spinal stenosis Spinal stenosis of lumbosacral region Testicular hypofunction Umbilical hernia with gangrene Surgical History Surgical History No pertinent past surgical history Family History Family History Mother Heart disease Father Heart disease Social History Social History Smoking status: Former smoker Alcohol intake: current Alcohol use details: rare Substance use: current Substance use type: marijuana Living arrangements: with family Gender identity (if verbalized by the patient): Male Sexual Orientation (if Verbalized by the Patient): Straight or Heterosexual Spiritual care concerns: No Comments At time of signature, I have reviewed and agree with nursing past medical, surgical, social and family history unless otherwise noted. Please see nursing chart for further information. There is no relev
== END 2023-02-17 13:24 | disposition home or self-care (01) ==
PROVIDERS: Emergency Provider Nurse Practitioner; PCP Family Medicine
DX: J06.9 Acute upper respiratory infection, unspecified (principal); Z87.891 Personal history of nicotine dependence; I10 Essential (primary) hypertension; M19.90 Unspecified osteoarthritis, unspecified site; M48.07 Spinal stenosis, lumbosacral region; Z79.82 Long term (current) use of aspirin; E66.9 Obesity, unspecified; Z68.43 Body mass index [BMI] 50.0-59.9, adult; F41.9 Anxiety disorder, unspecified
CPT/HCPCS: 99211; G0463

== ENCOUNTER 2023-02-22 10:44 | Outpatient (CLI) | payer MEDICARE, SELFPAY ==
[2023-02-22 11:22] LABS: Basophils Percent Auto 0.2 % (0.2-1.2); Eosinophils Absolute Auto 0.1 K/mm3 (0-0.3); Eosinophils Percent Auto 2.1 % (0-4.4); Hematocrit 44.2 % (42.0-52.0); Hemoglobin 14.5 g/dL (14.0-18.0); Immature Granulocyte Absolute 0.01 K/mm3 (0.00-0.031); Immature Granulocyte Percent A 0.2 % (0-0.5); Lymphocytes Absolute Auto 1.23 K/mm3 (0.9-3.2); Lymphocytes Percent Auto 21.5 % (18.3-44.2); Mean Corpuscular HGB Conc 32.8 g/dl (32-36); Mean Corpuscular Hemoglobin 29.2 pg (26-34); Mean Corpuscular Volume 88.9 fl (80-100); Mean Platelet Volume 8.9 fl (7.4-10.4); Monocytes Absolute Auto 0.4 K/mm3 (0.1-0.6); Monocytes Percent Auto 7.2 % (2.6-8.5); Neutrophils Percent Auto 68.8 % (45.5-73.1); Platelet Count Result 260 k/mm3 (150-375); Red Blood Count 4.97 M/mm3 (4.6-6.20); Red Cell Distribution Width 13.2 % (11.5-14.5); White Blood Count 5.7 K/mm3 (4.5-10.0)
[2023-02-22 11:50] LABS: Alanine Aminotransferase 37 U/L (6-50); Albumin Level 4.6 g/dL (3.5-5.1); Alkaline Phosphatase 66 U/L (38-126); Anion Gap 8 mmol/L (8-16); Aspartate Amino Transferase 43 U/L (17-59); Bilirubin,Total 0.9 mg/dL (0.2-1.3); Blood Urea Nitrogen 16 mg/dL (9-20); Calcium 8.9 mg/dL (8.4-10.2); Carbon Dioxide 29 mmol/L (22-30); Chloride 102 mmol/L (98-107); Cholesterol 150 mg/dL (0-200); Estimated Glomerular Filt Rate > 60; Glucose 98 mg/dL (65-110); HDL Direct 27 mg/dL; Potassium 4.6 mmol/L (3.4-5.0); Sodium 139 mmol/L (137-145); Triglycerides 143 mg/dL (<150)
[2023-02-22 11:51] LABS: Hemoglobin A1C 5.3 % (<5.7); LDL Cholesterol Direct 95 mg/dL
[2023-02-22 12:10] LABS: Prostate Specific Antigen 1.1 ng/mL (< OR = 4.0)
[2023-02-22 12:44] LABS: Free T4 Free Thyroxine 1.16 ng/mL (0.78-2.19)
[2023-02-23 11:32] LABS: Creatinine Urine 244.9 mg/dL
[2023-02-23 11:39] LABS: MALB Creatinine Ratio 5.3 mg/g (0-30); Microalbumin Urine Random 13.1 mg/L (0-16.7)
== END 2023-02-22 10:45 | disposition home or self-care (01) ==
PROVIDERS: PCP Family Medicine; Visit Provider Family Medicine
DX: R53.83 Other fatigue (principal); R53.1 Weakness; G47.30 Sleep apnea, unspecified; R73.01 Impaired fasting glucose; E66.01 Morbid (severe) obesity due to excess calories; E78.5 Hyperlipidemia, unspecified; I10 Essential (primary) hypertension; Z12.5 Encounter for screening for malignant neoplasm of prostate
CPT/HCPCS: 36415; 80053; 80061; 82043; 83036; 84153; 84439; 84443; 84481; 85025; G0103

== ENCOUNTER 2023-04-20 09:15 | Outpatient (CLI) | payer MEDICARE, SELFPAY ==
--- NOTE | ~2023-04-20 | XR_ITS ---
AP and lateral views of the left hip Clinical history: Pain Findings: No acute fracture or dislocation is seen. Osseous alignment is anatomic. Bilateral hip and SI joint spaces are preserved. Soft tissues are unremarkable. Impression: No significant abnormality is seen. Reviewed, dictated and finalized at location . Impression: No significant abnormality is seen.
== END 2023-04-20 09:16 | disposition home or self-care (01) ==
PROVIDERS: PCP Family Medicine; Visit Provider Nurse Practitioner Adult Health
DX: M25.552 Pain in left hip (principal)
CPT/HCPCS: 73502

== ENCOUNTER 2023-11-17 10:55 | Outpatient (CLI) | payer MEDICARE, SELFPAY ==
[2023-11-17 11:20] LABS: Basophils Percent Auto 0.2 % (0.2-1.2); Eosinophils Absolute Auto 0.2 K/mm3 (0-0.3); Eosinophils Percent Auto 4.1 % (0-4.4); Hematocrit 44.7 % (42.0-52.0); Hemoglobin 14.4 g/dL (14.0-18.0); Immature Granulocyte Absolute 0.02 K/mm3 (0.00-0.031); Immature Granulocyte Percent A 0.4 % (0-0.5); Lymphocytes Percent Auto 31.3 % (18.3-44.2); Mean Corpuscular HGB Conc 32.2 g/dl (32-36); Mean Corpuscular Hemoglobin 29.4 pg (26-34); Mean Corpuscular Volume 91.4 fl (80-100); Mean Platelet Volume 8.9 fl (7.4-10.4); Monocytes Absolute Auto 0.4 K/mm3 (0.1-0.6); Monocytes Percent Auto 8.2 % (2.6-8.5); Neutrophils Absolute Auto 2.9 K/mm3 (1.3-6.7); Neutrophils Percent Auto 55.8 % (45.5-73.1); Platelet Count Result 249 k/mm3 (150-375); Red Blood Count 4.89 M/mm3 (4.6-6.20); Red Cell Distribution Width 13.8 % (11.5-14.5); White Blood Count 5.1 K/mm3 (4.5-10.0)
[2023-11-17 11:34] LABS: Hemoglobin A1C 5.6 % (<5.7)
[2023-11-17 12:00] LABS: Prostate Specific Antigen 1.1 ng/mL (< OR = 4.0)
[2023-11-17 12:41] LABS: Alanine Aminotransferase 27 U/L (6-50); Alkaline Phosphatase 63 U/L (38-126); Anion Gap 6 mmol/L (8-16); Aspartate Amino Transferase 34 U/L (17-59); Bilirubin,Total 0.7 mg/dL (0.2-1.3); Blood Urea Nitrogen 18 mg/dL (9-20); Calcium 8.9 mg/dL (8.4-10.2); Carbon Dioxide 27 mmol/L (22-30); Chloride 106 mmol/L (98-107); Cholesterol 131 mg/dL (0-200); Estimated Glomerular Filt Rate > 60; Glucose 110 mg/dL (65-110); HDL Direct 32 mg/dL; Potassium 4.7 mmol/L (3.4-5.0); Sodium 139 mmol/L (137-145); Triglycerides 92 mg/dL (<150)
[2023-11-17 12:50] LABS: LDL Cholesterol Direct 89 mg/dL
== END 2023-11-17 10:56 | disposition home or self-care (01) ==
PROVIDERS: PCP Family Medicine; Visit Provider Family Medicine
DX: R73.01 Impaired fasting glucose (principal); E78.5 Hyperlipidemia, unspecified; I10 Essential (primary) hypertension; Z12.5 Encounter for screening for malignant neoplasm of prostate; R35.1 Nocturia
CPT/HCPCS: 36415; 80053; 80061; 83036; 84153; 85025; G0103

== ENCOUNTER 2024-03-27 11:44 | Emergency (ER) | payer MEDICARE, SELFPAY ==
[2024-03-27 11:49] VITALS: BP 149/86; PULSE 57; RESP 16; TEMP 36.6; O2SAT 98
--- NOTE | 2024-03-27 12:11 | ED.EAR ---
HPI - Ear Problem General Chief complaint: Ear Stated complaint: hearing aid stuck in R ear, left leg infection. Time Seen by Provider: 03/27/24 11:48 History of Present Illness HPI Narrative: 61-year-old male presents to the emergency room for multiple medical problems. Patient states on Sunday he attempted to remove his hearing aid were part of of was dislodged. Patient attempted to remove using a pen. Patient states he experienced some pain with discharge from his year following his attempted removal. Patient is also complaining of redness, swelling, warmth and pain to his left scott. Patient states he has had multiple overlying superficial cuts and abrasions to the left leg. Related Data Home Medications Medication Instructions Recorded Confirmed aspirin 81 mg tablet,delayed 81 mg PO DAILY 11/03/20 12/10/23 release gabapentin 600 mg tablet 800 mg PO TID 11/03/20 12/10/23 melatonin 10 mg capsule 10 mg PO .pm PRN Sleep 11/03/20 12/10/23 meloxicam 7.5 mg tablet 7.5 mg PO BID 11/03/20 12/10/23 multivitamin 1 tablet PO DAILY 11/03/20 12/10/23 ascorbate calcium (vitamin C) 500 500 mg PO DAILY 11/09/20 12/10/23 mg tablet cholecalciferol (vitamin D3) 10 25 mcg PO DAILY 11/09/20 12/10/23 mcg (400 unit) capsule cyanocobalamin (vitamin B-12) 50 50 mcg PO DAILY 11/09/20 12/10/23 mcg tablet ropinirole 1 mg tablet 1 mg PO DAILY 11/09/20 12/10/23 vitamin E 200 unit capsule 200 unit PO DAILY 11/09/20 12/10/23 magnesium 100 mg capsule 100 mg PO DAILY 10/15/21 12/10/23 docusate sodium 100 mg capsule 100 mg PO DAILY PRN Constipation 12/14/22 12/10/23 losartan 50 mg tablet 50 mg PO DAILY 12/14/22 12/10/23 pantoprazole 20 mg tablet,delayed 20 mg PO QAM 12/14/22 12/10/23 release citicoline 500 mg capsule 500 mg PO DAILY 02/17/23 12/10/23 ([facility]) coenzyme Q10 200 mg capsule (Co 200 mg PO DAILY 06/03/23 03/25/24 Q-10) fluoxetine 40 mg capsule 40 mg PO DAILY 02/17/23 12/10/23 semaglutide 3 mg tablet (Rybelsus) 3 mg PO DAILY 02/17/23 12/10/23 Allergies Allergy/AdvReac Type Severity Reaction Status Date / Time No Known Allergies Allergy Verified 03/27/24 11:51 Review of Systems Review of Systems: ROS unremarkable except for noted in HPI PMFSH Past Medical History Medical History Anxiety Hypertension Insomnia Obesity ED (obstructive sleep apnea) Osteoarthritis Radiculopathy of lumbosacral region Spinal stenosis Spinal stenosis of lumbosacral region Testicular hypofunction Umbilical hernia with gangrene Surgical History Surgical History No pertinent past surgical history Family History Family History Mother Heart disease Father Heart disease Social History Social History Smoking status: Former smoker Alcohol intake: current Alcohol use details: rare Substance use: current Substance use type: marijuana Do You Feel Safe in your Home?: Yes Lack of Transportation: No Lack of Food: Never True Current Housing: I Have Housing Concerned About Future Housing: No Difficulty Paying Gas/Electric Bills: No Difficulty Paying for Meds: No Education: Trade/Vocational Certificate Difficulty w/ Childcare or Family Care: No Living arrangements: with family Gender identity (if verbalized by the patient): Male Sexual Orientation (if Verbalized by the Patient): Straight or Heterosexual Spiritual care concerns: No Exam Narrative: GENERAL: Well-appearing, well-nourished, no physical limitations, and in no acute distress. HEAD: Normocephalic, atraumatic. EYES: Conjunctivae normal, PERRLA and EOMI. ENT: FB noted to left ear canal. partially ruptured TM inferior to FB CHEST: Clear to auscultation. No respiratory distress. No wheezes rales or rh
== END 2024-03-27 12:24 | disposition home or self-care (01) ==
PROVIDERS: Emergency Provider Nurse Practitioner Family; PCP Family Medicine
DX: T16.1XXA Foreign body in right ear, initial encounter (principal); S09.21XA Traumatic rupture of right ear drum, initial encounter; W44.G1XA Audio device entering into or through a natural orifice, initial encounter
CPT/HCPCS: 69200; 99283

== ENCOUNTER 2024-05-27 10:25 | Outpatient (CLI) | payer MEDICARE, SELFPAY ==
[2024-05-27 10:55] LABS: Basophils Percent Auto 0.2 % (0.2-1.2); Eosinophils Absolute Auto 0.2 K/mm3 (0-0.3); Eosinophils Percent Auto 2.7 % (0-4.4); Hemoglobin 15.4 g/dL (14.0-18.0); Immature Granulocyte Absolute 0.02 K/mm3 (0.00-0.031); Immature Granulocyte Percent A 0.4 % (0-0.5); Lymphocytes Percent Auto 27.1 % (18.3-44.2); Mean Corpuscular HGB Conc 32.8 g/dl (32-36); Mean Corpuscular Hemoglobin 30.1 pg (26-34); Mean Platelet Volume 9.7 fl (7.4-10.4); Monocytes Absolute Auto 0.4 K/mm3 (0.1-0.6); Monocytes Percent Auto 7.4 % (2.6-8.5); Neutrophils Absolute Auto 3.5 K/mm3 (1.3-6.7); Neutrophils Percent Auto 62.2 % (45.5-73.1); Platelet Count Result 222 k/mm3 (150-375); Red Blood Count 5.11 M/mm3 (4.6-6.20); White Blood Count 5.5 K/mm3 (4.5-10.0)
[2024-05-27 11:18] LABS: Alanine Aminotransferase 21 U/L (6-50); Albumin Level 4.3 g/dL (3.5-5.1); Alkaline Phosphatase 68 U/L (38-126); Anion Gap 8 mmol/L (4-12); Aspartate Amino Transferase 28 U/L (17-59); Bilirubin,Total 0.4 mg/dL (0.2-1.3); Blood Urea Nitrogen 20 mg/dL (9-20); Carbon Dioxide 28 mmol/L (22-30); Chloride 103 mmol/L (98-107); Estimated Glomerular Filt Rate > 60; Glucose 99 mg/dL (65-110); Potassium 4.6 mmol/L (3.4-5.0); Sodium 139 mmol/L (137-145)
[2024-05-27 11:44] LABS: Creatinine Urine 151.3 mg/dL
[2024-05-27 11:49] LABS: Hemoglobin A1C 5.5 % (<5.7); Prostate Specific Antigen 1.1 ng/mL (< OR = 4.0)
[2024-05-27 11:52] LABS: MALB Creatinine Ratio < 4.0 mg/g (0-30); Microalbumin Urine Random < 6.0 mg/L (0-16.7)
[2024-06-01 09:13] LABS: Testosterone Free 58.4 pg/mL (35.0-155.0); Testosterone Total 357 ng/dL (250-1100)
== END 2024-05-27 10:26 | disposition home or self-care (01) ==
PROVIDERS: PCP Family Medicine; Visit Provider Registered Nurse
DX: K21.9 Gastro-esophageal reflux disease without esophagitis (principal); I10 Essential (primary) hypertension; R73.01 Impaired fasting glucose; N52.9 Male erectile dysfunction, unspecified
CPT/HCPCS: 36415; 80053; 82043; 83036; 84153; 84402; 84403; 85025

== ENCOUNTER 2024-12-03 09:32 | Outpatient (CLI) | payer MEDICARE, SELFPAY ==
[2024-12-03 10:17] LABS: Basophils Percent Auto 0.2 % (0.2-1.2); Eosinophils Absolute Auto 0.2 K/mm3 (0-0.3); Eosinophils Percent Auto 2.7 % (0-4.4); Immature Granulocyte Absolute 0.01 K/mm3 (0.00-0.031); Immature Granulocyte Percent A 0.2 % (0-0.5); Lymphocytes Absolute Auto 1.39 K/mm3 (0.9-3.2); Lymphocytes Percent Auto 23.4 % (18.3-44.2); Mean Corpuscular HGB Conc 31.9 g/dl (32-36); Mean Corpuscular Hemoglobin 29.6 pg (26-34); Mean Corpuscular Volume 92.7 fl (80-100); Monocytes Absolute Auto 0.5 K/mm3 (0.1-0.6); Monocytes Percent Auto 8.2 % (2.6-8.5); Neutrophils Absolute Auto 3.9 K/mm3 (1.3-6.7); Neutrophils Percent Auto 65.3 % (45.5-73.1); Platelet Count Result 262 k/mm3 (150-375); Red Blood Count 5.07 M/mm3 (4.6-6.20); Red Cell Distribution Width 13.3 % (11.5-14.5); White Blood Count 5.9 K/mm3 (4.5-10.0)
[2024-12-03 10:35] LABS: Alanine Aminotransferase 22 U/L (6-50); Albumin Level 4.2 g/dL (3.5-5.1); Alkaline Phosphatase 63 U/L (38-126); Anion Gap 8 mmol/L (4-12); Aspartate Amino Transferase 22 U/L (17-59); Bilirubin,Total 0.4 mg/dL (0.2-1.3); Blood Urea Nitrogen 28 mg/dL (9-20); Calcium 8.9 mg/dL (8.4-10.2); Carbon Dioxide 27 mmol/L (22-30); Chloride 106 mmol/L (98-107); Cholesterol 147 mg/dL (0-200); Estimated Glomerular Filt Rate > 60; Glucose 104 mg/dL (65-110); HDL Direct 43 mg/dL; Hemoglobin A1C 5.2 % (<5.7); Potassium 4.4 mmol/L (3.4-5.0); Sodium 141 mmol/L (137-145); Triglycerides 67 mg/dL (<150)
--- OUTSIDE RECORDS SUMMARY | 2024-12-03 10:40 | XMS_ITS | Clinical Summary ---
Author Organization [facility] Address [address] [place] [address] Care Team Providers Care Assistant Purchasing Manager Name Role Phone Felisha PedrazaP Primary Care Provider [phone] Khris Cordoba MD Unavailable Medications cyclobenzaprine 10 MG tablet Take 10 mg by mouth 3 (three) times daily. 2 11/15/2018 Active DOK 100 MG capsule Take 100 mg by mouth 2 (two) times daily. 2 12/05/2018 Active gabapentin 600 MG tablet Take 600 mg by mouth 3 (three) times daily. 2 11/19/2018 Active lisinopril 40 MG tablet Take 1 tablet by mouth every evening. 0 10/22/2018 Active meloxicam 7.5 MG tablet Take 7.5 mg by mouth 2 (two) times daily. 2 11/23/2018 Active ropinirole 0.5 MG tablet Take 0.5 mg by mouth nightly at bedtime. 0 12/05/2018 Active sertraline 50 MG tablet Take 50 mg by mouth daily. At noon. 2 12/05/2018 Active topiramate 50 MG Tab Take 1 tablet by mouth 2 (two) times a day. 2 11/19/2018 Active venlafaxine XR 75 MG 24 hr capsule Take 75 mg by mouth every morning. 2 12/05/2018 Active aspirin 81 MG tablet Take 1 tablet (81 mg total) by mouth daily. 30 tablet 12/12/2018 Active B Complex Tab Take 1 tablet by mouth every morning. 12/12/2018 Active Multiple Vitamin (DAILY VITAMIN) Tab Take 1 tablet by mouth daily. 30 tablet 12/12/2018 Active Cholecalciferol (VITAMIN D) 1000 UNIT tablet Take 1 tablet (1,000 Units total) by mouth daily. 30 tablet 12/12/2018 Active vitamin C 1000 MG tablet Take 1 tablet (1,000 mg total) by mouth daily. 30 tablet 12/12/2018 Active Melatonin 10 MG Tab Take 1 tablet by mouth daily. 12/12/2018 Active Active Problems Problem Noted Date Diagnosed Date Ulcer of right lower extremi ty, limited to breakdown of skin ([facility]) 12/12/2018 Chronic venous stasis 12/12/2018 Family History Relation Status Comments Father Mother Alive Social History Tobacco Use Types Packs/Day Years Used Date Smoking Tobacco: Former Smokeless Tobacco: Never Alcohol Use Standard Drinks/Week Comments No 0 (1 standard drink = 0.6 oz pur e alcohol) socially AUDIT-C Answer Date Recorded Frequency of Alcohol Consumption Never 12/12/2018 Average Number of Drinks Not on file 019 Frequency of Binge Drinking Not on file 11/16 Sex and Gender Information Value Date Recorded Sex Assigned at Not on file Legal Sex Male 9:45 AM [employer] Gender Identity Not on file Sexual Orientation Not on file Last Filed Vital Signs Vital Sign Reading Time Taken Comments Blood Pressure 158/90 02/06/2019 2:41 PM CDT Pulse 92 02/06/2019 2:41 PM CDT Temperature - - Respiratory Rate - - Oxygen Saturation - - Inhaled Oxygen Concentration - - Weight 216.8 kg (478 lb) 02/06/2019 2:41 PM CDT Height 193 cm (6' 4 ) 02/06/2019 2:41 PM CDT Body Mass Index 58.18 02/06/2019 2:41 PM CDT Plan of Treatment Health Maintenance Due Date Last Done Comments Colorectal Cancer Screening Colonoscopy (10 Years) 1961 Annual Physical 1964 Hepatitis C 1979 DTaP, Tdap and Td Vaccines ( 1 - Tdap) 1980 Zoster Vaccines (1 of 2) 2011 COVID-19 Vaccine ( - 2023-2 5 season) 2024 Influenza Adult (#1) 2024 RSV Immunization or 60+ Years (1 - 1-dose 75+ series) 2036 Meningococcal B Vaccine Aged Out No l onger eligible based on patient's age to complete this topic Meningococcal Vaccine Aged Out No isabela sangeeta eligible based on patient's age to complete this topic Pneumococcal Vaccine: Pediat rics (0 to 5 Years) and At-Risk Patients (6 to 64 Years) Aged Out No longer eligible b ased on patient's age to complete this topic RSV Immunizations Under 20 Months Aged Out No longer eligible based on patient's age to complete this topic Insurance [facility] Care Teams Assistant Purchasing Manager Relationship Specialty Start Date End Date Felisha Pedraza FNP [address] [place] [address] PCP - General NURSE PRACTITIONER 10/18/18 Khris Cordoba MD [facility] [address] [place] [address] [place] Ditch Worker VASCULAR SURGERY 10/18/18
--- OUTSIDE RECORDS SUMMARY | 2024-12-03 10:40 | XMS_ITS | Clinical Summary ---
Author Organization [facility] Address [address] [place] [address] Care Team Providers Care Product Grader Name Role Phone Jacinto Lainez MD Primary Care Provider [phone] Source Comments [facility],non-owned Affiliates and Associated Physician Practices is amultiple site organization consisting of ambulatory clinics and hospital sitesin [place], [place], [place] and [place]. This disclosure is being madepursuant to the Care Everywhere program and may not contain all information available regarding this patient. Last updated 18.[facility] Allergies No known active allergies Medications * Be aware that medications may not be up to date on this document. Alwaysverify current medications with the patient. Medication Sig Dispensed Refills Start Date End Date Status gabapentin (NEURONTIN) 600 MG tablet Take 600 mg by mouth 11/19/2018 Acti ve venlafaxine XR 24hr (EFFEXOR XR) 75 MG capsule Take 75 mg by mouth 12/05/2018 Ac tive topiramate (TOPAMAX) 50 MG tablet Take 1 tablet by mouth 11/19/2018 Active docusate sodium (DOK) 100 MG capsule Take 100 mg by mouth 12/05/2018 Acti ve sertraline (ZOLOFT) 50 MG tablet Take 50 mg by mouth 12/05/2018 Activ e meloxicam (MOBIC) 7.5 MG tablet Take 7.5 mg by mouth 11/23/2018 A ctive rOPINIRole (REQUIP) 0.5 MG tablet Take 0.5 mg by mouth 12/05/2018 Acti ve lisinopril (PRINIVIL; ZESTRIL) 20 MG tablet TK 1 T PO QD 0 06/12/2019 Active aspirin (ASPIRIN) 81 MG tablet Take 81 mg by mouth 12/12/2018 Act janeth B Complex TABS Take 1 tablet by mouth 12/12/2018 Active MULTIPLE VITAMIN PO Take 1 tablet by mouth 12/12/2018 Active vitamin C (ASCORBIC ACID) 1000 MG tablet Take 1,000 mg by mouth 12/12/2018 Active vitamin D3 (CHOLECALCIFEROL) 1000 units tablet Take 1,000 Units by mouth 12/12/2018 Active cyclobenzaprine (FLEXERIL) 10 MG tablet Take 10 mg by mouth 11/15/2018 Activ e HYDROcodone-acetam inophen (NORCO) 5-325 MG tablet TK 1 T PO Q 8 H PRN P 0 05/30/2019 Active Melatonin 10 MG Take 1 tablet by mouth 12/12/2018 Active testosterone cypionate (DEPO-TESTOTERONE) 200 MG/ML injection INJECT 1 ML BY INTRAMUSCULAR ROUTE Q 2 WEEKS 3 05/30/2019 Active sildenafil (REVATIO) 20 MG tablet Take 5 tablets by mouth once daily as needed 30 tablet 5 06/25/2019 Active Family History Medical History Relation Name Comments CVA Father Relation Name Status Comments Father Social History Tobacco Use Types Packs/Day Years Used Date Smoking Tobacco: Former Cigarettes Q uit: 1997 Smokeless Tobacco: Former Quit: 1978 Alcohol Use Standard Drinks/Week Comments Yes 0 (1 standard drink = 0.6 oz pur e alcohol) OCC Sex and Gender Information Value Date Recorded Sex Assigned at Not on file Gender Identity Not on file Sexual Orientation Not on file Last Filed Vital Signs Vital Sign Reading Time Taken Comments Blood Pressure 130/80 06/25/2019 2:14 PM CDT Pulse 90 06/25/2019 2:14 PM CDT Temperature 36.9 C (98.4 F) 06/25/2019 2:14 PM CDT Respiratory Rate - - Oxygen Saturation 95% 06/25/2019 2:14 PM CDT Inhaled Oxygen Concentration - - Weight 214.1 kg (472 lb) 06/25/2019 2:14 PM CDT Height 193 cm (6' 4 ) 06/25/2019 2:14 PM CDT Body Mass Index 57.45 06/25/2019 2:14 PM CDT Plan of Treatment Health Maintenance Due Date Last Done Comments COLOGUARD (AGES 45-75) - COL ON CA SCREENING 1961 COLON MONITORING 1961 COLONOSCOPY - COLON CA SCREENING 1961 CT COLONOGRAPHY - COLON CA SCREENING 1961 Colorectal Cancer Screening 1961 FIT - COLON CA SCREENING 1961 FLEX SIG - COLON CA SCREENING 1961 LIPID TESTING 1961 HIV SCREENING 1976 HEPATITIS C SCREENING 09/12/1979 DTAP/TDAP/TD VACCINES (1 - Tdap) 1980 PNEUMOCOCCAL VACCINE 50+ (1 of 1 - PCV) 2011 ZOSTER VACCINE (1 of 2) 2011 SCREENING FOR DIABETES 06/25/2019 Respiratory Syncytial Virus (RSV) Vaccine Pt: or over 60 yrs (1 - Risk 60-74 years 1-dose series) 2021 COVID-19 VACCINE (1 - 2023-2 5 season) 2024 INFLUENZA VACCINE (#1) 2024 DEPRESSION SCREENING 09/17/2024 HEPATITIS B VACCINE Aged Out No longe r eligible based on patient's age to complete this topic HIB VACCINE Aged Out No longer eligi ble based on patient's age to complete this topic HPV VACCINE Aged Out No longer eligi ble based on patient's age to complete this topic MENINGOCOCCAL (Group B) VACC INE SHARED DECISION-MAKING Aged Out No longer eligibl e based on patient's age to complete this topic MENINGOCOCCAL GROUPS A/C/Y/W VACCINE Aged Out No longer eligible b ased on patient's age to complete this topic PNEUMOCOCCAL VACCINE Aged Out No long er eligible based on patient's age to complete this topic Care Teams Product Grader Relationship Specialty Start Date End Date Jacinto Lainez MD [address] [place] [address] [facility] - General 08/15/16
[2024-12-03 10:46] LABS: LDL Cholesterol Direct 76 mg/dL
[2024-12-03 11:13] LABS: Prostate Specific Antigen 0.9 ng/mL (< OR = 4.0)
[2024-12-03 11:30] LABS: Hepatitis C Virus Antibody Negative (Negative)
== END 2024-12-03 09:33 | disposition home or self-care (01) ==
LOC: ANHLAB 09:35
PROVIDERS: PCP Family Medicine; Visit Provider Registered Nurse
DX: R73.01 Impaired fasting glucose (principal); K21.9 Gastro-esophageal reflux disease without esophagitis; E78.5 Hyperlipidemia, unspecified; I10 Essential (primary) hypertension; Z12.5 Encounter for screening for malignant neoplasm of prostate; Z11.59 Encounter for screening for other viral diseases
CPT/HCPCS: 36415; 80053; 80061; 83036; 84153; 85025; 86803; G0103

== ENCOUNTER 2025-01-13 08:36 | Outpatient (CLI) | payer MEDICARE, MEDICAID, SELFPAY ==
--- NOTE | 2025-01-13 08:46 | ECHO_ITS ---
Patient Info Name: Hever Washington Age: 64 years : 1960 Gender: Male Ht: 76 in Wt: 408 lbs BSA: 3.24 m2 HR: 61 bpm BP: 151 / 100 mmHg Technical Quality: Poor Exam Date: 01/13/2025 8:56 AM Exam Location: Echo Lab Patient Status: Outpatient Admit Date: 01/13/2025 Staff Ordering Physician: Negrito Hernadez DO Speeder Worker: Adriana Lei RDCS Attending Provider: Negrito Hernadez DO Referring Physician: Satya MEDEIROS; Exam Type: CA echo dop color flow w con Study Info Indications R06.09 - Other forms of dyspnea Complete two-dimensional, color flow and Doppler transthoracic echocardiogram is performed with contrast to opacify the left ventricle and to improve the deliniation of the left ventricle endocardial borders. Contrast/Agitated Saline Contrast/Ag. Saline: Definity Amount: 3.00 ml Administered By: Adriana Lei RDCS New IV Access: Dorsum of Hand and Right Site Condition: Site dressing applied, No extravasation and IV removed Reason for Poor Study: patient body habitus Summary 1. Definity contrast administered improved wall motion interpretation. 2. Left ventricular chamber dimension is normal. 3. Left ventricular systolic function is normal, estimated at 60-65%. 4. There is moderate concentric increased left ventricular wall thickness. 5. The left ventricular diastolic function is grade I diastolic dysfunction. 6. E/e' 9 is minimally elevated. 7. Left atrial chamber dimension is moderately enlarged. 8. Right atrial chamber dimension is moderately enlarged. 9. No pulmonary hypertension, estimated pulmonary arterial systolic pressure is 30 mmHg. Left Ventricle E/e' 9 is minimally elevated. Definity contrast administered improved wall motion interpretation. Left ventricular chamber dimension is normal. Left ventricular systolic function is normal, estimated at 60-65%. There is moderate concentric increased left ventricular wall thickness. The left ventricular diastolic function is grade I diastolic dysfunction. Right Ventricle Right ventricular systolic function is normal and with normal TAPSE 2.3 cm. Right ventricular chamber dimension is normal. Left Atria Left atrial chamber dimension is moderately enlarged. Right Atria Right atrial chamber dimension is moderately enlarged. Aortic Valve The aortic valve is trileaflet. There is no aortic valve stenosis. There is no aortic valve regurgitation. Pulmonic Valve There is no pulmonic regurgitation. Mitral Valve There is no mitral valve stenosis. There is no mitral valve regurgitation. Tricuspid Valve There is no tricuspid valve regurgitation. No pulmonary hypertension, estimated pulmonary arterial systolic pressure is 30 mmHg. Pericardium/Pleural There is no pericardial effusion. Inferior Vena Cava Normal inferior vena cava with >50% collapse upon inspiration consistent with normal right atrial pressure, 5 mmHg. Aorta The aortic root size at the sinus of Valsalva is normal. Left Ventricular Outflow Tract Name Value Normal LVOT 2D LVOT Diameter 2.24 cm LVOT Doppler LVOT Peak Gradient 5 mmHg LVOT Mean Gradient 3 mmHg LVOT VTI 26.25 cm LVOT VTI/AV VTI Ratio 0.90 LVOT Stroke Volume 103.42 ml LVOT CO 6.12 l/min LVOT CI 1.89 L/min/m2 Pulmonic Valve Name Value Normal RVOT Doppler RVOT Peak Gradient 2 mmHg PV Doppler PV Peak Gradient 2 mmHg Mitral Valve Name Value Normal MV Doppler MV Decel Ashley 551.54 cm/s2 MV PHT 0 s MV Area (PHT) 3.69 cm2 4.00-5.00 MV Diastolic Function MV E Peak Velocity 113.36 cm/s MV A Peak Velocity 103.02 cm/s MV E/A 1.10 MV Decel Time 0 s Tricuspid Valve Name Value Normal TV Regurgitation Doppler TR Peak Velocity 249.71 cm/s TR Peak Gradient 25 mmHg Estimated PAP/RSVP RA Pressure 5 mmHg <=5 PA Systolic Pressure 30 mmHg <36 RV Systolic Pressure 30 mmHg <36 Aorta Name Value Normal Ascending Aorta Ao Root Diameter (MM) 3.49 cm Ao Root Diam Index (MM) 1.08 cm/m2 Aortic Valve Name Value Normal AV Doppler AV Peak Velocity 128.10 cm/s AV Peak Gradient 7 mmHg AV Mean Gradient 4 mmHg AV VTI 29.19 cm AV Area (Cont Eq VTI) 3.55 cm2 >=3.00 AV Area (Cont Eq Fidel) 3.37 cm2 AV Regurgitation 2D LVOT Area 3.94 cm2 Ventricles Name Value Normal LV Dimensions 2D/MM IVS Diastolic Thickness (2D) 1.33 cm 0.60-1.00 IVS Diastole Thickness (MM) 1.51 cm 0.60-1.00 LVID Diastole (2D) 4.52 cm 4.20-5.80 LVID Diastole (MM) 5.91 cm 4.20-5.80 LVIW Diastolic Thickness (2D) 1.53 cm 0.60-1.00 LVIW Diastolic Thickness (MM) 1.31 cm 0.60-1.00 LVID Systole (2D) 3.19 cm 2.50-4.00 LVID Systole (MM) 3.33 cm 2.50-4.00 LVOT Diameter 2.24 cm LV Mass (2D Cubed) 259.08 g 88.00-224.00 LV Mass Index (2D Cubed) 0.01 g/cm2 0.00-0.01 Relative Wall Thickness (2D) 0.68 LV Mass (MM Cubed) 380.97 g 88.00-224.00 LV Mass Index (MM Cubed) 0.01 g/cm2 0.00-0.01 Relative Wall Thickness (MM) 0.44 LV Fractional Shortening/Ejection Fraction 2D/MM LV Fractional Shortening (2D) 29 % 25-43 LV Fractional Shortening (MM) 44 % 25-43 LV EF (MM Teicholz) 74 % 52-72 LV EF (2D Teicholz) 56 % 52-72 LV Diastolic Volume (4C MOD) 107.90 ml LV EF (4C MOD) 66 % LV Diastolic Volume (2C MOD) 102.67 ml LV EF (2C MOD) 70 % LV Diastolic Volume (BP MOD) 107.07 ml 62.00-150.00 LV Diastolic Volume Index (BP MOD) 0.03 l/m2 0.03-0.07 LV Systolic Volume (BP MOD) 34.62 ml 21.00-61.00 LV Systolic Volume Index (BP MOD) 0.01 l/m2 0.01-0.03 LV EF (BP MOD) 68 % 52-72 LV Diastolic Length (4C) 8.76 cm LV Systolic Length (4C) 7.07 cm LV Stroke Volume (4C MOD) 70.81 ml Atria Name Value Normal LA Dimensions LA Dimension (MM) 4.24 cm 3.00-4.10 LA Volume (4C A-L) 98.94 ml LA Volume (BP A-L) 97.88 ml RA Dimensions RA Area (4C) 25.58 cm2 <=18.00 Report Signatures
--- OUTSIDE RECORDS SUMMARY | 2025-01-13 08:58 | XMS_ITS | Clinical Summary ---
Author Organization [facility] [employer] Address [address] [place] [address] Care Team Providers Care Medical Auditor Name Role Phone Jacinto Lainez MD Primary Care Provider [phone] Source Comments [facility],non-owned Affiliates and Associated Physician Practices is amultiple site organization consisting of ambulatory clinics and hospital sitesin [place], [place], [place] and [place]. This disclosure is being madepursuant to the Care Everywhere program and may not contain all information available regarding this patient. Last updated 18.[facility] [employer] Allergies No known active allergies Medications * Be aware that medications may not be up to date on this document. Alwaysverify current medications with the patient. gabapentin (NEURONTIN) 600 MG tablet Take 600 mg by mouth 9 Active venlafaxine XR 24hr (EFFEXOR XR) 75 MG capsule Take 75 mg by mouth 9 Active topiramate (TOPAMAX) 50 MG tablet Take 1 tablet by mouth 9 Active docusate sodium (DOK) 100 MG capsule Take 100 mg by mouth 9 Active sertraline (ZOLOFT) 50 MG tablet Take 50 mg by mouth 9 Active meloxicam (MOBIC) 7.5 MG tablet Take 7.5 mg by mouth 9 Active rOPINIRole (REQUIP) 0.5 MG tablet Take 0.5 mg by mouth 9 Active lisinopril (PRINIVIL; ZESTRIL) 20 MG tablet TK 1 T PO QD 0 9 Active aspirin (ASPIRIN) 81 MG tablet Take 81 mg by mouth 9 Active B Complex TABS Take 1 tablet by mouth 9 Active MULTIPLE VITAMIN PO Take 1 tablet by mouth 9 Active vitamin C (ASCORBIC ACID) 1000 MG tablet Take 1,000 mg by mouth 9 Active vitamin D3 (CHOLECALCIFER OL) 1000 units tablet Take 1,000 Units by mouth 9 Active cyclobenzaprin e (FLEXERIL) 10 MG tablet Take 10 mg by mouth 9 Active HYDROcodone-ac etaminophen (NORCO) 5-325 MG tablet TK 1 T PO Q 8 H PRN P 0 9 Active Melatonin 10 MG Take 1 tablet by mouth 9 Active testosterone cypionate (DEPO-TESTOTER ONE) 200 MG/ML injection INJECT 1 ML BY INTRAMUSCULAR ROUTE Q 2 WEEKS 3 9 Active sildenafil (REVATIO) 20 MG tablet Take 5 tablets by mouth once daily as needed 30 tablet 5 9 Active Family History Medical History Relation Name [...] at Not on file 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
--- OUTSIDE RECORDS SUMMARY | 2025-01-13 08:58 | XMS_ITS | Clinical Summary ---
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 Gender Identity Not on file Sexual Orientation [...] Td Vaccines ( 1 - Tdap) 1980 Pneumococcal Vaccine: 50+ Ye ars (1 of 1 - PCV) 2011 Zoster Vaccines (1 of 2) 2011 COVID-19 Vaccine ( - 2023-2 5 season) 2024 RSV Immunization or 60+ Years (1 [...] patient's age to complete this topic Insurance [facility] Care Teams Field Artillery Senior Sergeant Relationship Specialty Start Date End Date Felisha Pedraza FNP [address] [place] [address] PCP - General NURSE PRACTITIONER 10/18/18 Khris Cordoba MD [facility] [address] [place] [address] [place] Medicare Coordinator VASCULAR SURGERY 10/18/18
[2025-01-13] MEDS: PERFLUTREN LIPID MICROSPHERES 1.5 ML VIAL DILUTED TO 10 ML TOTAL VOLUME IV PUSH (09:40)
--- NOTE | 2025-01-15 15:22 | IVDEFINITY ---
Prior to administration of IV Definity the patient was educated on the risks and benefits of the imaging enhancing agent including potential adverse side effects. The patient verbalized understanding. Allergies were verified. No exclusion criteria were identified and at least one of the following inclusion criteria were met: 1) physician request, 2) patient technically difficult to image (per the [place] [employer] Echocardi[employer] guidelines of two or more segments not discernable within the apical view), or 3) questionable left ventricular function. ?
== END 2025-01-13 08:37 | disposition home or self-care (01) ==
LOC: ANHCARD 08:36
PROVIDERS: PCP Family Medicine; Visit Provider Internal Medicine Cardiovascular Disease
DX: R06.09 Other forms of dyspnea (principal)
CPT/HCPCS: C8929; Q9957

== ENCOUNTER 2025-04-06 01:30 | Day surgery (SDC) | payer MEDICARE, MEDICAID, SELFPAY ==
[2025-03-24 10:49] VITALS: BMI 48.8
--- OUTSIDE RECORDS SUMMARY | 2025-04-06 01:33 | XMS_ITS | Clinical Summary ---
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 Gender Identity Not on file Sexual Orientation Not on file Last Filed Vital Signs Vital Sign Reading Time Taken Comments Blood Pressure 158/90 02/06/2019 2:41 PM CDT Pulse 92 02/06/2019 2:41 PM CDT Temperature - - Respiratory Rate - - Oxygen Saturation - - Inhaled Oxygen Concentration - - Weight 216.8 kg (478 lb) 02/06/2019 2:41 PM CDT Height 193 cm (6' 4) 02/06/2019 2:41 PM CDT Body Mass Index [...] patient's age to complete this topic Insurance [facility] Care Teams Avaya Engineer Relationship Specialty Start Date End Date Felisha Pedraza FNP [address] [place] [address] PCP - General NURSE PRACTITIONER 10/18/18 Khris Cordoba MD [facility] [address] [place] [address] [place] Call Center Dispatcher VASCULAR SURGERY 10/18/18
--- OUTSIDE RECORDS SUMMARY | 2025-04-06 01:33 | XMS_ITS | Clinical Summary ---
Author Organization [facility] [employer] Address [address] [place] [address] Care Team Providers Care Freight Receiver Name Role Phone Jacinto Lainez MD Primary Care Provider [phone] Source Comments [facility] [employer],non-owned Affiliates and Associated Physician Practices is amultiple site organization consisting of ambulatory clinics and hospital sitesin [place], [place], [place] and [place]. This disclosure is being madepursuant to the Care Everywhere program and may not contain all information available regarding this patient. 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 Care Teams Freight Receiver Relationship Specialty Start Date End Date Motwani, Jacinto K, MD [address] [place] [address] PCP - General 08/15/16
[2025-04-06 08:58] VITALS: BP 139/70; PULSE 55; RESP 20; TEMP 36.3; O2SAT 100
--- NOTE | 2025-04-06 09:02 | WPDANESEPPF ---
Anes - Initial Pre Proc Eval Procedure: Operation Date: 04/06/25 10:30 Proposed Procedures p Colonoscopy - George Zamarripa MD Date/Time: 04/06/25 09:02 Surgeon: George Zamarripa MD Pre Op Diagnosis: Other fecal abnormalities, Melena Patient Data Age: 64 Gender: M Height: 1.93 m Weight: 185.7 kg Last Vital Signs Temp 97.3 F L 04/06/25 08:58 Pulse 55 L 04/06/25 08:58 Resp 20 04/06/25 08:58 BP 139/70 04/06/25 08:58 Pulse Ox 100 04/06/25 08:58 O2 Del Method Room Air 04/06/25 08:58 Allergies Allergy/AdvReac Type Severity Reaction Status Date / Time No Known Allergies Allergy Verified 04/06/25 08:48 Home Medications ?Medication ?Instructions ?Recorded ?Confirmed ?Type aspirin 81 mg tablet,delayed 81 mg PO DAILY 11/03/20 04/06/25 History release melatonin 10 mg capsule 10 mg PO .pm PRN Sleep 11/03/20 04/06/25 History meloxicam 7.5 mg tablet 7.5 mg PO BID 11/03/20 04/06/25 History multivitamin 1 tablet PO DAILY 11/03/20 04/06/25 History ascorbate calcium (vitamin C) 500 500 mg PO DAILY 11/09/20 04/06/25 History mg tablet cholecalciferol (vitamin D3) 10 25 mcg PO DAILY 11/09/20 04/06/25 History mcg (400 unit) capsule cyanocobalamin (vitamin B-12) 50 50 mcg PO DAILY 11/09/20 04/06/25 History mcg tablet ropinirole 1 mg tablet 1 mg PO DAILY 11/09/20 04/06/25 History magnesium 100 mg capsule 100 mg PO DAILY 10/15/21 04/06/25 History docusate sodium 100 mg capsule 100 mg PO DAILY PRN Constipation 12/14/22 03/24/25 History pantoprazole 20 mg tablet,delayed 20 mg PO QAM 12/14/22 04/06/25 History release citicoline 500 mg capsule 500 mg PO DAILY 02/17/23 04/06/25 History ([facility]) coenzyme Q10 200 mg capsule (Co 200 mg PO DAILY 02/17/23 04/06/25 History Q-10) fluoxetine 40 mg capsule 40 mg PO DAILY 02/17/23 04/06/25 History gabapentin 800 mg tablet 800 mg PO TID 12/09/24 04/06/25 History losartan 100 mg tablet 100 mg PO DAILY 12/09/24 04/06/25 History pravastatin 20 mg tablet 20 mg PO DAILY 12/09/24 04/06/25 History Patient hx anesthesia problems: none Family hx anesthesia problems: none Results Review: All pre-operative results and documents have been reviewed as part of the pre-operative evaluation. [facility] Past Medical History Medical History Anxiety Hypertension Insomnia Obesity ED (obstructive sleep apnea) Osteoarthritis Radiculopathy of lumbosacral region Spinal stenosis Spinal stenosis of lumbosacral region Testicular hypofunction Umbilical hernia with gangrene Surgical History Surgical History No pertinent past surgical history Family History Family History Mother Heart disease Father Heart disease Social History Social History Smoking packs per day: 0.5 Smoking cigarettes per day: 10.0 Years smoked: 33 Smoking pack-years: 16.50 Smoking status: Former smoker Alcohol intake: current Alcohol use details: rare Substance use: current Substance use type: marijuana Do You Feel Safe in your Home?: Yes Lack of Transportation: No Lack of Food: Never True Current Housing: I Have Housing Concerned About Future Housing: No Difficulty Paying Gas/Electric Bills: No Difficulty Paying for Meds: No Education: Trade/Vocational Certificate Difficulty w/ Childcare or Family Care: No Living arrangements: with family Gender identity (if verbalized by the patient): Male Sexual Orientation (if Verbalized by the Patient): Straight or Heterosexual Spiritual care concerns: No Anes - Eval Final PreProcedure Day of Procedure 04/06/25 09:02 Patient weight: morbidly obese Heart: regular rate and rhythm Lungs: clear to auscultation Airway: Mallampati scale class III Neurological: alert and oriented Last oral intake: >/= 8 hours ASA classification: III Emergent: no Anesthetic plan: proceed Anesthesia type and monitoring: general GIVS and standard monitoring Results Review: All pre-operative results and documents have been reviewed as part of the pre-operative evaluation. Informed Consent: The patient's anesthetic plan and its attendant risks and benefits were discussed with the patient/family/POA. Questions were solicited and answers provided to the satisfaction of the patient/family/POA.
[2025-04-06] MEDS: LACTATED RINGERS 1,000 ML 150 ML IV CONT (09:12)
--- NOTE | 2025-04-06 10:15 | PM.IMHP ---
H&P: HPI History of Present Illness Date/Time: 04/06/25 10:15 Chief Complaint: Screening colonoscopy Narrative: This is the patient's 2nd colonoscopy. There are no GI symptoms and there is no family history of colorectal cancer. Review of Systems Review of Systems: All systems reviewed & are unremarkable except as noted in HPI and below PMFSH Past Medical History Medical History Anxiety Hypertension Insomnia Obesity ED (obstructive sleep apnea) Osteoarthritis Radiculopathy of lumbosacral region Spinal stenosis Spinal stenosis of lumbosacral region Testicular hypofunction Umbilical hernia with gangrene Surgical History Surgical History No pertinent past surgical history Family History Family History Mother Heart disease Father Heart disease Social History Social History Smoking packs per day: 0.5 Smoking cigarettes per day: 10.0 Years smoked: 33 Smoking pack-years: 16.50 Smoking status: Former smoker Alcohol intake: current Alcohol use details: rare Substance use: current Substance use type: marijuana Do You Feel Safe in your Home?: Yes Lack of Transportation: No Lack of Food: Never True Current Housing: I Have Housing Concerned About Future Housing: No Difficulty Paying Gas/Electric Bills: No Difficulty Paying for Meds: No Education: Trade/Vocational Certificate Difficulty w/ Childcare or Family Care: No Living arrangements: with family Gender identity (if verbalized by the patient): Male Sexual Orientation (if Verbalized by the Patient): Straight or Heterosexual Spiritual care concerns: No Meds Home Medications and Allergies Home Medications ?Medication ?Instructions ?Recorded ?Confirmed ?Type aspirin 81 mg tablet,delayed 81 mg PO DAILY 11/03/20 04/06/25 History release melatonin 10 mg capsule 10 mg PO .pm PRN Sleep 11/03/20 04/06/25 History meloxicam 7.5 mg tablet 7.5 mg PO BID 11/03/20 04/06/25 History multivitamin 1 tablet PO DAILY 11/03/20 04/06/25 History ascorbate calcium (vitamin C) 500 500 mg PO DAILY 11/09/20 04/06/25 History mg tablet cholecalciferol (vitamin D3) 10 25 mcg PO DAILY 11/09/20 04/06/25 History mcg (400 unit) capsule cyanocobalamin (vitamin B-12) 50 50 mcg PO DAILY 11/09/20 04/06/25 History mcg tablet ropinirole 1 mg tablet 1 mg PO DAILY 11/09/20 04/06/25 History magnesium 100 mg capsule 100 mg PO DAILY 10/15/21 04/06/25 History docusate sodium 100 mg capsule 100 mg PO DAILY PRN Constipation 12/14/22 03/24/25 History pantoprazole 20 mg tablet,delayed 20 mg PO QAM 12/14/22 04/06/25 History release citicoline 500 mg capsule 500 mg PO DAILY 02/17/23 04/06/25 History (Cognitive Health) coenzyme Q10 200 mg capsule (Co 200 mg PO DAILY 02/17/23 04/06/25 History Q-10) fluoxetine 40 mg capsule 40 mg PO DAILY 02/17/23 04/06/25 History gabapentin 800 mg tablet 800 mg PO TID 12/09/24 04/06/25 History losartan 100 mg tablet 100 mg PO DAILY 12/09/24 04/06/25 History pravastatin 20 mg tablet 20 mg PO DAILY 12/09/24 04/06/25 History Allergies Allergy/AdvReac Type Severity Reaction Status Date / Time No Known Allergies Allergy Verified 04/06/25 08:48 Vital Signs Vital Signs - 24 hr 04/06/25 08:58 Temperature 97.3 F L Pulse Rate 55 L Respiratory Rate 20 Blood Pressure 139/70 Pulse Oximetry 100 Oxygen Delivery Room Air Exam Const: General: cooperative and healthy appearing Resp: Effort & Inspection: normal respiratory effort and able to speak in complete sentences Auscultation: clear to auscultation bilaterally Cardio: Rate: regular rate Rhythm: regular rhythm GI: Inspection: normal to inspection GI Palp: No No hepatosplenomegaly present Auscultation: normal bowel sounds Rectal Exam: deferred Skin: General skin exam: normal color Psych: Appearance: grossly normal Mental Status: mental status grossly normal Assessment and Plan Assessment and plan (1) Encounter for screening colonoscopy: Code(s): Z12.11 - Encounter for screening for malignant neoplasm of colon Status: Acute Assessment and Plan: The patient is deemed a good candidate for the procedure. Consent signed. Will proceed.
[2025-04-06 10:44] VITALS: BP 115/60; PULSE 61; RESP 24; O2SAT 98
[2025-04-06 10:54] VITALS: BP 119/70; PULSE 60; RESP 20; O2SAT 98
[2025-04-06 11:04] VITALS: BP 128/86; PULSE 60; RESP 20; O2SAT 98
== END 2025-04-06 11:19 | disposition home or self-care (01) ==
PROVIDERS: PCP Family Medicine; Visit Provider Internal Medicine Gastroenterology
PROC: 0DJD8ZZ Inspection of Lower Intestinal Tract, Via Natural or Artificial Opening Endoscopic (ICD-10-PCS; CPT 45378; principal; 2025-04-06 10:30)
DX: Z12.11 Encounter for screening for malignant neoplasm of colon (principal); K64.8 Other hemorrhoids; Z87.891 Personal history of nicotine dependence; E66.01 Morbid (severe) obesity due to excess calories; Z68.42 Body mass index [BMI] 45.0-49.9, adult
CPT/HCPCS: G0121; J2003; J2704; J7120

== ENCOUNTER 2025-04-24 08:16 | Outpatient (CLI) | payer MEDICARE, MEDICAID, SELFPAY ==
--- OUTSIDE RECORDS SUMMARY | 2025-04-24 08:22 | XMS_ITS | Clinical Summary ---
Author Organization [facility] Address [address] [place] [address] Care Team Providers Care Jalousie Installer Name Role Phone Jacinto Lainez MD Primary Care Provider [phone] Source Comments [facility],non-owned Affiliates and Associated Physician Practices is amultiple site organization consisting of ambulatory clinics and hospital sitesin [place], [place], [place] and [place]. This disclosure is being madepursuant to the Care Everywhere program and may not contain all information available regarding this patient. 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
--- OUTSIDE RECORDS SUMMARY | 2025-04-24 08:22 | XMS_ITS | Clinical Summary ---
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
[2025-04-24 09:22] LABS: Hematocrit 43.7 % (42.0-52.0); Hemoglobin 14.2 g/dL (14.0-18.0); Immature Granulocyte Percent A 0.5 % (0-0.5); Lymphocytes Absolute Auto 1.69 K/mm3 (0.9-3.2); Mean Corpuscular HGB Conc 32.5 g/dl (32-36); Mean Corpuscular Hemoglobin 29.8 pg (26-34); Mean Corpuscular Volume 91.6 fl (80-100); Nucleated Red Blood Cells Absolute Auto 0.000 K/mm3 (0.0-0.012); Nucleated Red Blood Cells Perc 0.0 % (0.0-0.2); Platelet Count Result 245 k/mm3 (150-375); Red Blood Count 4.77 M/mm3 (4.6-6.20); White Blood Count 6.1 K/mm3 (4.5-10.0)
[2025-04-24 09:59] LABS: Alanine Aminotransferase 21 U/L (6-50); Albumin Level 4.0 g/dL (3.5-5.1); Alkaline Phosphatase 55 U/L (38-126); Anion Gap 9 mmol/L (4-12); Aspartate Amino Transferase 37 U/L (17-59); Bilirubin,Total 0.7 mg/dL (0.2-1.3); Blood Urea Nitrogen 20 mg/dL (9-20); Calcium 9.1 mg/dL (8.4-10.2); Carbon Dioxide 25 mmol/L (22-30); Chloride 106 mmol/L (98-107); Cholesterol 153 mg/dL (0-200); Estimated Glomerular Filt Rate > 60; Glucose 99 mg/dL (65-110); HDL Direct 38 mg/dL; Potassium 4.3 mmol/L (3.4-5.0); Sodium 140 mmol/L (137-145); Total Protein 7.3 g/dL (6.3-8.2); Triglycerides 109 mg/dL (<150)
[2025-04-24 10:37] LABS: Prostate Specific Antigen 1.4 ng/mL (< OR = 4.0)
[2025-04-24 12:33] LABS: Free T4 Free Thyroxine 0.90 ng/dL (0.78-2.19)
[2025-04-24 12:46] LABS: Hemoglobin A1C 5.4 % (<5.7)
[2025-04-24 15:12] LABS: Thyroid Stimulating Hormone 2.370 uIU/mL (0.465-4.680); Total Triiodothyronine (T3) 1.31 NG/ML (0.82-1.58)
[2025-05-01 05:29] LABS: Free Testosterone (Direct) 3.1 pg/mL (6.6-18.1)
== END 2025-04-24 08:17 | disposition home or self-care (01) ==
PROVIDERS: PCP Family Medicine; Visit Provider Nurse Practitioner Family
DX: E11.42 Type 2 diabetes mellitus with diabetic polyneuropathy (principal); E78.5 Hyperlipidemia, unspecified; E55.9 Vitamin D deficiency, unspecified; Z12.5 Encounter for screening for malignant neoplasm of prostate
CPT/HCPCS: 36415; 80053; 80061; 82306; 82746; 83036; 84153; 84403; 84439; 84443; 84480; 85025; G0103

== ENCOUNTER 2025-07-07 15:33 | Emergency (ER) | payer OTHER, MEDICARE, MEDICAID, SELFPAY ==
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
[2025-07-07 15:34] VITALS: BP 168/87; PULSE 81; RESP 17; TEMP 36.6; O2SAT 98
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
[2025-07-07] MEDS: KETOROLAC 30 MG/ML VIAL (*BKC) IM (17:15)
[2025-07-07] MEDS: LIDOCAINE 5% PATCH 1 PATCH TRANSDERM (17:16)
[2025-07-07 17:49] VITALS: BP 134/78; PULSE 58; RESP 18; TEMP 36.6; O2SAT 97
--- OUTSIDE RECORDS SUMMARY | 2025-07-07 19:24 | XMS_ITS | Clinical Summary ---
Author Organization [facility] Address [address] [place] [address] Care Team Providers Care Physical Biochemist Name Role Phone Jacinto Lainez MD Primary Care Provider [phone] Source Comments [facility],non-owned Affiliates and Associated Physician Practices is amultiple site organization consisting of ambulatory clinics and hospital sitesin [place], [place] and [place]. This disclosure is being madepursuant to the Care Everywhere program and may not contain all information available regarding this patient. 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
--- OUTSIDE RECORDS SUMMARY | 2025-07-07 19:47 | XMS_ITS | Clinical Summary ---
Author Organization [facility] Address [address] [place] [address] Care Team Providers Care Owner Oral Surgeon Name Role Phone Jacinto Lainez MD Primary Care Provider [phone] Source Comments [facility],non-owned Affiliates and Associated Physician Practices is amultiple site organization consisting of ambulatory clinics and hospital sitesin [place], [place], [place] and [place]. This disclosure is being madepursuant to the Care Everywhere program and may not contain all information available regarding this patient. 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
--- OUTSIDE RECORDS SUMMARY | 2025-07-07 19:47 | XMS_ITS | Clinical Summary ---
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 Gender Identity Not on file Sexual Orientation [...] COVID-19 Vaccine ( - 2023-2 5 season) 2025 Influenza Adult (#1) 2025 RSV Immunization or 60+ Years (1 - 1-dose 75+ series) 2036 Hepatitis A Vaccines Aged Out No long er eligible based on patient's age to complete this topic Meningococcal B Vaccine Aged Out No l onger eligible based on patient's age to complete this topic Meningococcal Vaccine Aged Out No isabela sangeeta eligible based on patient's age to complete this topic RSV Immunizations Under 20 Months Aged Out No longer eligible based on patient's age to complete this topic Insurance [facility] Care Teams Teacher Public Health Relationship Specialty Start Date End Date Felisha Pedraza FNP [address] [place] [id number] PCP - General NURSE PRACTITIONER 10/18/18 Khris Cordoba MD [address] [address] [employer] Supervisor VASCULAR SURGERY 10/18/18
== END 2025-07-07 17:51 | disposition home or self-care (01) ==
PROVIDERS: Emergency Provider Student in an Organized Health Care Education/Training Program; PCP Family Medicine
DX: S50.11XA Contusion of right forearm, initial encounter (principal); S43.492A Other sprain of left shoulder joint, initial encounter; I25.10 Atherosclerotic heart disease of native coronary artery without angina pectoris; I10 Essential (primary) hypertension; E66.9 Obesity, unspecified; Z68.43 Body mass index [BMI] 50.0-59.9, adult; M19.90 Unspecified osteoarthritis, unspecified site; G47.33 Obstructive sleep apnea (adult) (pediatric); Z87.891 Personal history of nicotine dependence; V43.52XA Car driver injured in collision with other type car in traffic accident, initial encounter
CPT/HCPCS: 73030; 73110; 96372; 99284; A9270; J1885

== ENCOUNTER 2025-09-05 12:06 | Outpatient (CLI) | payer MEDICARE, SELFPAY ==
--- NOTE | ~2025-09-05 | XR_ITS ---
XR abdomen/kub 1V 09/05/2025 12:31 INDICATION: Right rib pain TECHNIQUE: KUB COMPARISON: None FINDINGS: Bowel gas pattern is normal. There is no evidence of free air, mass, organomegaly, ascites or obstruction. No abnormal calculi are seen. The bones appear intact. IMPRESSION: 1: No acute abdominal abnormality identified. Reviewed, dictated and finalized at location O. ION AND NONFICTION WRITER PROSE
--- OUTSIDE RECORDS SUMMARY | 2025-09-05 12:09 | XMS_ITS | Clinical Summary ---
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
--- OUTSIDE RECORDS SUMMARY | 2025-09-05 12:09 | XMS_ITS | Clinical Summary ---
Author Organization [facility] Address [address] [place] [address] [address] Care [address] Recorder Name Role Phone Jacinto Lainez MD Primary Care Provider [phone] Source Comments [facility],non-owned Affiliates and Associated Physician Practices is amultiple site organization consisting of ambulatory clinics and hospital sitesin [place], [place], [place] and [place]. This disclosure is being madepursuant to the Care Everywhere program and may not contain all information available regarding this patient. 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
== END 2025-09-05 12:07 | disposition home or self-care (01) ==
PROVIDERS: PCP Family Medicine; Visit Provider Nurse Practitioner Family
DX: R07.81 Pleurodynia (principal)
CPT/HCPCS: 74018